=== PATIENT | female | born 1965 | race Caucasian/White ===

== ENCOUNTER 2025-01-08 19:29 | Emergency (ER) | payer BC, SELFPAY ==
--- OUTSIDE RECORDS SUMMARY | 2025-01-08 19:39 | XMS_ITS ---
Author Organization [facility] Address [address] [address] Care Team Providers Care Reinforced Ironworker Name Role Phone Angela Momin Primary Care Provider [phone] Migration, Provider Unavailable Unavailable REASON FOR VISIT [facility] To [facility] Conversion Encounter Medications Medication SIG (Take, Route, Frequency, Duration) Notes Start Date End Date Status Metoprolol Succinate ER 25 MG 1 tab(s) orally once a day A ctive Ozempic (0.25 or 0.5 MG/DOSE) 2 MG/3ML inject 0.25 mg once weekly x 4 weeks then increase to 0.5 mg once weekly thereafter subcutaneously once a week for 90 days 07/21/2024 Active Tresiba FlexTouch 100 UNIT/ML inject up to 40 units subcutaneously once a day at bedtime for 90 days 07/21/2024 Active Basaglar KwikPen 100 UNIT/ML inject 14 units in morning and 16 units at bedtime and titrate to ideal glucose range; TDD up to 60 units subcutaneously twice daily for 90 days 08/05/2024 Active Glimepiride 1 MG 1 tab(s) orally once a day Active PARoxetine HCl 20 MG 1 tab(s) orally once a day Active Omeprazole 40 MG 1 cap(s) orally once a day Active metFORMIN HCl 500 MG 1 tab(s) orally 2 t imes a day Active Encounters Encounter Location Date Provider Diagnosis [facility] [address] [place] [address] 10/15/2024 Provider Migration Type 2 diabetes mellitus with hyperglycemia E11.65 Assessments Encounter Date Diagnosis (ICD Code) Assessment Notes Treatment Notes Treatment Clinical Notes Section Notes 10/15/2024 Type 2 diabetes mellitus with hyperglycemia (ICD-10 - E11.65) Plan Of Treatment Medication Medication Name Sig Start Date Stop Date Notes Ozempic (0.25 or 0.5 MG/DOSE) 2 MG/3ML inject 0.25 mg once weekly x 4 weeks then increase to 0.5 mg once weekly thereafter subcutaneously once a week for 90 days 07/21/2024 Tresiba FlexTouch 100 UNIT/ML inject up to 40 units subcutaneously once a day at bedtime for 90 days 07/21/2024 Basaglar KwikPen 100 UNIT/ML inject 14 units in morning and 16 units at bedtime and titrate to ideal glucose range; TDD up to 60 units subcutaneously twice daily for 90 days 08/05/2024 Progress Notes * JEFFREY, CATERINAIDOB:1965 ([age] yo F)Acc No.[id number]:10/15/2024 Patient: KERI SINGH Provider: Barrett Lopez :1965 A ge:59 Y S ex:Female Date:10/15/2024 Phone: Address:[address] [place], [place] [id number] Pcp:Angela Momin Subjective: * Chief Complaints: * [facility] . [facility] Conversion Encounter. * Medical History: * Medications: T aking Glimepiride 1 MG Tablet 1 tab(s) orally once a day , Taking Omeprazole 40 MG Capsule Delayed Release 1 cap(s) orally once a day , Taking PARoxetine HCl 20 MG Tablet 1 tab(s) orally once a day , Taking metFORMIN HCl 500 MG Tablet 1 tab(s) orally 2 times a day , Taking Metoprolol Succinate ER 25 MG Tablet Extended Release 24 Hour 1 tab(s) orally once a day Objective: * Vitals: Assessment: * Assessment: 1. T ype 2 diabetes mellitus with hyperglycemia - E11.65 (Primary) Plan: * Treatment: * Billing Information: * Visit Code: * Procedure Codes: * Electronic signature of Prov ider Migration on 01/08/2025 at 07:38 PM SALES AND MARKETING SPECIALIST Sign off status: Pending * Provider: Barrett Lopez Date: 12/15/2023 Generated for Sultana weaver/Giuseppe/eTransmitting on: 0 01/08/2025 07:38 PM SALES AND MARKETING SPECIALIST
--- OUTSIDE RECORDS SUMMARY | 2025-01-08 19:39 | XMS_ITS | Encounter Summary ---
Author Organization [facility] Address [address] [place] [address] Care Team Providers Care Hospital Nurse Name Role Phone Wellington Medina MD Primary Care Provider [phone] Shena Acosta MA Unavailable [phone] Maryann Foy MA Unavailable [phone] Encounter Details Date Type Department Care Team (Late st Contact Info) Description 03/15/2021 Telephone [facility] Mammography [address] [place] [address] Amanda Gomez RT Social History Tobacco Use Types Packs/Day Years Used Date Smoking Tobacco: Every Day Cigarettes Smokeless Tobacco: Never Comments:5-6 cigs day Alcohol Use Standard Drinks/Week Comments Yes 0 (1 standard drink = 0.6 oz pure alcohol) occationally wine none recently PHQ-2 Answer Date Recorded PHQ-2 Total Score (If total score is 3 or more points, staff should administer the PHQ-9) 0 03/11/2021 Comments No Sex and Gender Information Value Date Recorded Sex Assigned at Not on file Legal 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 Gender Identity Not on file Sexual Orientation Not on file 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 Not on file Not on file Not on file documented as of this encounter Plan of Treatment Scheduled Procedures Name Priority Associated Diagnoses Date/Ti me ESOPHAGOGASTRODUODENOSCOPY Open Access 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 COLONOSCOPY Open Access Personal history of colonic polyps COLONOSCOPY Screening for colon cancer documented as of this encounter Visit Diagnoses Not on filedocumented in this encounter Care Teams Hospital Nurse Relationship Specialty Start Date End Date Wellington Medina MD [address] [place] [address] [address] [place] [address] PCP - General 02/27/17 Shena Acosta MA [address] [place] [address] [employer] Branding Machine Tender 08/28/22 08/28/22 Maryann Foy MA [address] [place] [address] ACO Care Branding Machine Tender 02/23/23 02/23/23 documented as of this encounter
--- OUTSIDE RECORDS SUMMARY | 2025-01-08 19:39 | XMS_ITS | Patient Health Record ---
Author Organization [facility] Address [address] [address] Care Team Providers Care Wrecking Car Driver Name Role Phone Angela Momin Primary Care Provider [phone] BR[facility]ON[facility] Unavailable [phone] Migration, Provider Unavailable Unavailable Reason For Referral No Information Medications Medication SIG (Take, Route, Frequency, Duration) Notes Start Date End Date Status PARoxetine HCl 20 MG 1 tab(s) orally once a day Active Omeprazole 40 MG 1 cap(s) orally once a day Active Metoprolol Succinate ER 25 MG 1 tab(s) orally once a day A ctive metFORMIN HCl 500 MG 1 tab(s) orally 2 t imes a day Active Ozempic (0.25 or 0.5 MG/DOSE) 2 MG/3ML [...] 1 tab(s) orally once a day Active Social History Tobacco Use: Social History Observation Description Date Smoking Status WARNING: Information temporarily unavailable Smoking: Question Answer Notes Additional Findings: Tobacco User 1 to 2 a day Problems Problem Type SNOMED Code ICD Code Onset Dates Problem Status W/U Status Risk Notes Problem Vitamin D deficiency (92081893) Vitamin D deficiency, unspecified (E55.9) Active confirmed Problem Hyperglycemia due to type 2 diabetes mellitus (845841362122622) Type 2 diabetes mellitus with hyperglycemia (E11.65) Active confirmed Problem Hyperlipidemia (51964941) Hyperlipidemia, unspecified (E78.5) Active confirmed Vital Signs Heart Rate 94 /min 07/21/2024 Blood pressure diastolic 80 mm Hg 07/21/2024 Height 66 in 07/21/2024 Blood pressure systolic 137 mm Hg 07/21/2024 Weight 187.0 lbs 07/21/2024 BMI 30.18 kg/m2 07/21/2024 Encounters Encounter Location Date Provider Diagnosis [address] [place] [address] 10/15/2024 Provider Migration Type 2 diabetes mellitus with hyperglycemia E11.65 [facility], [facility] - [facility] [address] [place] [address] 07/21/2024 Angela Momin Type 2 diabetes mellitus with hyperglycemia E11.65 ; Hyperlipidemia, unspecified E78.5 ; Other fatigue R53.83 and Vitamin D deficiency, unspecified E55.9 [facility] [address] [place] [address] 07/21/2024 [facility] [address] [place] [address] 07/27/2024 [facility] - [facility] [address] [place] [address] 07/28/2024 [facility] - [facility] [address] [place] [address] 08/02/2024 Angela Momin [facility] [address] [place] [address] 08/03/2024 Angela Momin [facility] - [facility] [address] [place] [address] 08/05/2024 Angela Momin Type 2 diabetes mellitus with hyperglycemia E11.65 Assessments Encounter Date Diagnosis (ICD Code) Assessment Notes Treatment Notes Treatment Clinical Notes Section Notes 10/15/2024 Type 2 diabetes mellitus with hyperglycemia (ICD-10 - E11.65) 07/21/2024 Type 2 diabetes mellitus with hyperglycemia (ICD-10 - E11.65) a1c due- sugars over 200 mg/dL consistently - Discussed carb counting and how to read food labels. Recommended patient to utilize the diabetesfoodhub.Couchy.com from the ADA website to help with food preparation as this presents ideal carb content per meal and will make carb counting easier for patient. Recommended she incorporate natural insulin sensitizers such as pears, apples, cinnamon, javi and sweet potatoes to help mobilize her endogenous insulin. Recommended up to 150 minutes of moderate level activity /exercise per week. Will transition to tresiba due to long acting duration of effect and decreased frequency of early childhood special educator hypoglycemia. Start at 20 units once daily at bedtime and patient advised to titrate up by 2 units every 4 days until fasting glucose running 90-120 mg/dL consistently (2-3 days consecutively). She may be able to avoid rapid/bolus insulin depending on residual insulin function and if eating more nonstarchy carbohydrates such as vegetables and low glycemic index fruits. Recommended GLP1 agonist therapy as she is having trouble at times with cravings of sweets and portion control. She does exercise at least three days a week 45 minutes at a time. Discussed potentially reducing total carb intake to 120 grams daily into 4-5 small split meals with addition of healthy protein based snack at bedtime to help reduce early childhood special educator hyperglcemia from counterregulatory hormones. She has no history of pancreatitis or medullary thyroid cancer and is willing to trial on a GLP1 agonist therapy. She was advised to contact clinic if he/she experiences any nausea, vomiting or significant thyroid pain/swelling or abdominal pain so we can discuss and discontinue and potentiually look into other therapy. Trial on ozempic 0.25 mg once weekly x 4 weeks then increase to 0.5 mg weekly when needed. Freestyle terry plus sensor provided today and patient educated on self placement. She is on insulin and will require the use of CGM to prevent hypoglycemia and potential hospitalizations. freestyle terry 3 plus Lot [id number] 12/30/2024 07/21/2024 Hyperlipidemia, unspecified (ICD-10 - E78.5) Send for lipid panel to screen. 08/05/2024 Type 2 diabetes mellitus with hyperglycemia (ICD-10 - E11.65) 07/21/2024 Other fatigue (ICD-10 - R53.83) WIll send for thyroid antibodies to screen for autoimmune thyroid disease in adition to CBC, CMP, ferritin, vit D and B12/folate to screen for other potential secondary causes of fatigue. 07/21/2024 Vitamin D deficiency, unspecified (ICD-10 - E55.9) Send for vitamin D to assess need to modify therapy. 07/21/2024 Other Spent 45 minute s preparing to see the patient (ex review of tests/chart), obtaining and / or reviewing separately obtained history, performing a medically appropriate examination and/or evaluation, counseling and educating the patient/family/careg iver, ordering medications, tests, or procedures, referring and communicating with other health lead caregiver, documenting clinical information in the electronic or other health record, independently interpreting results and communicating results to the patient/family/careg iver and care coordinating patient plan. Patient alert and oriented x 4 and aware of discussion noted above and in agreeance to plan in management of DM, dyslipidemia, vitamin D def and fatigue. Plan Of Treatment No Information Insurance Providers Payer Name Payer Address Payer Phone Subscriber Number Group Number Insured Name Patient Relationship to Insured Coverage Start Date Coverage End Date [facility] [address] [place] [address] [id number] KERI MURPHY Self - patient is the insured Medical (General) History Surgical History Surgery Date(Month/Year) Hiatal Hernia spinal surgery 01/2023
--- OUTSIDE RECORDS SUMMARY | 2025-01-08 19:39 | XMS_ITS | Referral Summary ---
Author Organization [facility] HealthCare Care Team Providers Care Fire Range Technician Name Role Phone Wellington Medina MD Primary Care Provider [phone] Encounters Date Type Department Care Team Description 12/02/2024 Orders Only [facility] at the [address] [phone] Wellington Medina MD 12/02/2024 Telephone [facility] at the [address] [phone] Wellington Medina MD Medical Question/Miscellaneous 11/11/2024 Orders Only [facility] at the [address] [phone] Wellington Medina MD 11/11/2024 Telephone [facility] at the [address] [phone] [place] Medina MD Symptom Based Call from Last 3 Months Allergies No known active allergies Medications ergocalciferol (VITAMIN D) 50,000 unit capsule Take 1 capsule (50,000 Units total) by mouth once a week 4 capsule 5 5 Active metFORMIN (GLUCOPHAGE) 500 mg tabletIndicatio ns:type 2 diabetes mellitus Take 1 tablet (500 mg total) by mouth 2 (two) times a day with meals 180 tablet [address] (PROTONIX) 40 mg EC tablet Take 1 tablet (40 mg total) by mouth daily Take 30 min before breakfast 90 tablet 3 5 12/02/19 26 Active PARoxetine (PAXIL) 20 mg tablet Take 1.5 tablets (30 mg total) by mouth daily 135 tablet 1 5 Active rosuvastatin (CRESTOR) 10 mg tablet Take 1 tablet (10 mg total) by mouth daily 90 tablet 3 5 Active insulin degludec (TRESIBA) 100 unit/mL (3 mL) pen for injection Inject 0.2 mL (20 Units total) under the skin nightly 6 mL 5 5 Active blood-glucose sensor device Apply 1 sensory every 15 days 2 each 5 5 Active lisinopriL (PRINIVIL,ZESTR IL) 20 mg tablet Take 1 tablet by mouth once daily 90 tablet 5 Active Active Problems Problem Noted Date Diagnosed Date Personal history of colonic polyps 07/27/2024 Assessment & Plan (07/28/2024 10:06 PM CDT): Ordered screening colonoscopy. S/P lumbar fusion 02/17/2023 Synovial cyst 09/26/2022 Overview (09/26/2022): Added automatically from request for surgery [id number] Spinal stenosis of lumbar region with radiculopa thy 09/26/2022 Overview (09/26/2022): Added automatically from request for surgery [id number] Assessment & Plan (01/15/2023 5:24 PM DEEP [employer] FRY): Lumbar spine surgery scheduled. Assessment & Plan (10/05/2022 7:59 PM DEEP [employer] COOK FRY): Spinal surgery onhold until patient's glycemic control improves. Primary insomnia 03/11/2021 Escobedo's esophagus 08/14/2020 Overview (08/14/2020): Added automatically from request for surgery [id number] Assessment & Plan (07/28/2024 10:06 PM CDT): Continue with pantoprazole. Due for re-evaluation with an EGD. Type 2 diabetes mellitus wit h hyperglycemia, without long-term current use of insulin 05/09/2019 Assessment & Plan (07/28/2024 10:05 PM CDT): Uncontrolled type 2 diabetes due to unintentional medication nonadherence due to loss of health insurance. Endocrinology resumed insulin treatment. Continue current diet and metformin as well. Target HGB A1c less 7%. Assessment & Plan (07/20/2023 8:01 PM CDT): Continue current diet and metformin. Target Hb A1c less than 7%. Once insurance reestablishing, I asked patient to call and we will check BMP, CBC and HbA1c. Assessment & Plan (02/25/2023 8:33 PM CDT): Well controlled type 2 DM. Continue current diet, semaglutide and metformin. Target Hb A1c less than 7.5%. Assessment & Plan (01/15/2023 5:23 PM DEEP [employer] COOK FRY): Much improved glycemic control with last Hb A1c of 7.1%. Continue current diet, Ozempic and metformin. Patient encouraged to update eye exam Assessment & Plan (10/05/2022 7:59 PM DEEP [employer] COOK FRY): Poorly controlled type 2 DM. Target Hb A1c less than 8.0%. Encouraged patient to send updates on blood sugar log. Continue current diet medications. Assessment & Plan (08/29/2022 12:00 PM CDT): Poorly controlled type 2 DM. Target Hb A1c 8.5%. Patient reports improving glycemic control with current diet and insulin treatment. Check CMP and HbA1c. Assessment & Plan (05/15/2022 12:54 PM CDT): Uncontrolled type 2 DM. Target Hb A1c less than 7.5%. Continue current diet insulin treatment. Check CMP, spot urine & HbA1c. Patient encouraged update eye exam. Benign essential hypertension 01/16/2016 Overview (03/05/2017): Benign essential hypertension Assessment & Plan (07/28/2024 10:05 PM CDT): Target BP less than 130/80. Continue current diet and lisinopril Assessment & Plan (02/25/2023 8:33 PM CDT): Target BP less than 130/80. Continue current diet, metoprolol and lisinopril. Assessment & Plan (10/05/2022 7:58 PM DEEP [employer] COOK FRY): Target BP <140/90. Continue current diet and medication Assessment & Plan (08/29/2022 12:00 PM CDT): Target BP less than 140/90. Continue current diet and medications. Assessment & Plan (05/15/2022 12:54 PM CDT): Target BP <140/90. Continue current diet, lisinopril and metoprolol. Check CBC and CMP. Recurrent major depressive disorder 01/16/2016 Overview (03/06/2017): Chronic major depressive disorder, recurrent episode Assessment & Plan (07/28/2024 10:05 PM CDT): Continue with Paxil. Assessment & Plan (02/25/2023 8:34 PM CDT): Mood stable on paroxetine. Assessment & Plan (01/15/2023 5:23 PM DEEP [employer] COOK FRY): Mood stable on paroxetine. Assessment & Plan (08/29/2022 12:01 PM CDT): Mood stable on paroxetine. Migraine with aura 06/13/2014 Overview (03/06/2017[facility] Panic disorder 04/15/2014 Overview (03/04/2017): PANIC DISORDER Polycystic ovaries 04/15/2014 Overview (03/05/2017): POLYCYSTIC OVARIES Hyperlipidemia associated with type 2 diabetes m gabriela 04/15/2014 Overview (03/05/2017): PURE HYPERCHOLESTEROLEM Assessment & Plan (07/28/2024 10:04 PM CDT): Uncontrolled hyperlipidemia due to unintentional medication non adherence due to loss of health insurance. Start rosuvastatin 10 mg daily. Target LDL less than 100. Assessment & Plan (02/25/2023 8:33 PM CDT): Target LDL less than 100. Continue current diet and rosuvastatin. Assessment & Plan (01/15/2023 5:23 PM DEEP [employer] COOK FRY): Target LDL less than 100. Continue current diet and rosuvastatin. Assessment & Plan (10/05/2022 7:57 PM DEEP [employer] COOK FRY): Target LDL less than 100. Continue current diet and rosuvastatin. Assessment & Plan (08/29/2022 12:00 PM CDT): Uncontrolled hyperlipidemia. Target LDL less than 100. Continue current diet and rosuvastatin. Check CMP and FLP. Assessment & Plan (05/15/2022 12:53 PM CDT): Uncontrolled hyperlipidemia. Recheck CMP and FLP. Target LDL less than 100. Continue current diet and rosuvastatin. Iron deficiency anemia 04/15/2014 Overview (03/05/2017): IRON DEFIC ANEMIA NOS Gastroesophageal reflux disease 04/15/2014 Overview (03/05/2017): ESOPHAGEAL REFLUX Assessment & Plan (05/15/2022 12:54 PM CDT): Continue with pantoprazole 40 mg daily. Generalized anxiety disorder 04/15/2014 Overview (03/05/2017): GENERALIZED ANXIETY DIS Resolved Problems Problem Noted Date Diagnosed Date Resolved Date Hyperlipidemia 01/16/2016 12/09/2017 Overview (03/06/2017): Hyperlipidemia LDL goal <130 Adiposity 04/15/2014 12/09/2017 Overview (03/04/2017): OBESITY NOS Depression 04/15/2014 01/05/2019 Overview (03/05/2017): DEPRESSIVE DISORDER NEC Benign hypertension 04/15/2014 01/05/20 Overview (03/05/2017): BENIGN HYPERTENSION Chest pain 04/15/2014 01/05/2019 Overview (03/06/2017): CHEST PAIN NOS Immunizations Name Administration Dates Next Due Influenza, Quadrivalent, Spl it, Preservative Free, Intramuscular 08/29/2022,08/30/2021,09/13/2020,11/17 Influenza, Split 10/13/2011 Influenza, Trivalent, IM (MDV) 09/28/2009,2007 Influenza, Unspecified 11/11/2023(Deferr ed: Patient Refused),09/30/2018 Pfizer SARS-CoV-2 Monovalent Vaccination (12+ Yrs) PURPLE 10/16/2021,01/28/2021,01/07/2021 Td, adsorbed 01/24/2000 Tdap 01/24/2011 ZOSTER Recombinant 07/27/2024,10/28/2021 Social History Tobacco Use Types Packs/Day Years Used Date Smoking Tobacco: Former Cigarettes 0.3 12 1 11/2009 - 09/2022 Smokeless Tobacco: Never Tobacco Cessation:Counseling Given: Not Answered Comments:5-6 cigs day Alcohol Use Standard Drinks/Week Comments Yes 0 (1 standard drink = 0.6 oz pure alcohol) occationally wine none recently AUDIT-C Answer Date Recorded Q1: How often do you have a drink containing alcohol? Never 02/17/2023 Q2: How many drinks containi ng alcohol do you have on a typical day when you are drinking? Patient does not drink Q3: How often do you have si x or more drinks on one occasion? Never 02/17/2023 PHQ-2 Answer Date Recorded PHQ-2 Total Score (If total score is 3 or more points, staff should administer the PHQ-9) 6 01/21/2024 Personal Safety Answer Date Recorded Have you ever been in or are you currently in a harmful physical or emotional relationship or is someone making you feel afraid or unsafe? 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) Not on file Not on file Not on adele e Last Filed Vital Signs Vital Sign Reading Time Taken Comments Blood Pressure 118/82 07/27/2024 9:24 AM CDT Pulse 91 07/27/2024 9:24 AM CDT Temperature 37 C (98.6 F) 02/20/2023 7:35 AM CDT Respiratory Rate 17 02/20/2023 7:35 AM CDT Oxygen Saturation 97% 07/27/2024 9:24 AM CDT Inhaled Oxygen Concentration - - Weight 86.2 kg (190 lb) 07/27/2024 9:24 AM CDT Height 166.4 cm (5' 5.5 ) 07/27/2024 9:24 AM CDT Body Mass Index 31.14 07/27/2024 9:24 AM CDT Plan of Treatment Scheduled Procedures Name Priority Associated Diagnoses Date/Ti me ESOPHAGOGASTRODUODENOSCOPY Open Access 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 COLONOSCOPY Open Access Personal history of colonic polyps COLONOSCOPY Screening for colon cancer Medical Devices Implanted Type Area Vp Product Device Identifier Shelf Expiration Date Model / Serial / Lot Allosource Canpac Allograft Frozen Nonpurge Graft 10cc Bone Cancellous [id number] - [id number] Implanted:Qty: 1 on 02/17/2023 by Gustabo Lynne MD at [facility] N/A: Spine Lumbar Allosource 10/19/2027 [id number] / / [id number] [employer] Reline 5.5mm Lock Open Tulip Spine Screw Bone Nonsterile [id number] - [id number] Implanted:Qty: 4 on 02/17/2023 by Gustabo Lynne MD at [facility] N/A: Spine Lumbar [employer] [id number] / / [employer] Reline-O 7.5mm 45mm Polyaxial Spine 2s Screw Bone Nonsterile [id number] - [id number] Implanted:Qty: 1 on 02/17/2023 by Gustabo Lynne MD at [facility] N/A: Spine Lumbar [employer] [id number] / / [employer]. Reline-O 5.5mm 35mm Lordotic Bruno Spinal Titanium Nonsterile [id number] - [id number] Implanted:Qty: 1 on 02/17/2023 by Gustabo Lynne MD at [facility] N/A: Spine Lumbar [employer]. [id number] / / [employer]. Reline-O 5.5mm 40mm Lordotic Bruno Spinal Titanium Nonsterile [id number] - [id number] Implanted:Qty: 1 on 02/17/2023 by Gustabo Lynne MD at [facility] N/A: Spine Lumbar [employer]. [id number] / / [employer] Reline-O 8.5mm 50mm Polyaxial Spine 2s Screw Bone Nonsterile [id number] - [id number] Implanted:Qty: 1 on 02/17/2023 by Gustabo Lynne MD at [facility] N/A: Spine Lumbar [employer] [id number] / / [employer] Screw Bone Spinal Reline-O 7.0x50mm 2s Polyaxial [id number] - [id number] Implanted:Qty: 2 on 02/17/2023 by Gustabo Lynne MD at [facility] N/A: Spine Lumbar [employer] [id number] / / Procedures Procedure Name Priority Date/Time Associated Diagnosis Comments ALBUMIN CREATININE RATIO, URINE Routine 07/13/2024 2:04 PM CDT Type 2 diabetes mellitus with hyperglycemia, without long-term current use of insulin ([facility]) ([facility]) EGFR Routine 07/13/2024 12:14 PM CDT Type 2 diabetes mellitus with hyperglycemia, without long-term current use of insulin (CMS/[facility]) ([facility]) Benign essential hypertension Hyperlipidemia associated with type 2 diabetes mellitus ([facility]) HEMOGLOBIN A1C Routine 07/13/2024 12:14 PM CDT Type 2 diabetes mellitus with hyperglycemia, without long-term current use of insulin (CMS/[facility]) ([facility]) LIPID PANEL Routine 07/13/2024 12:14 PM CDT Type 2 diabetes mellitus with hyperglycemia, without long-term current use of insulin (CMS/HCC) (HCC) Hyperlipidemia associated with type 2 diabetes mellitus (HCC) SCREENING MAMMOGRAM BILATERAL W NARENDRA Schedule Routine, Read Routine (OP Routine) 03/19/2021 11:37 AM CDT Screening mammogram, encounter for COLONOSCOPY 08/31/2020 8:21 AM CDT from Last 3 Months or Most Recently Relevant to Health Maintenance Results * Albumin Creatinine Ratio, Urine (07/13/2024 2:04 PM CDT) Albumin Ur <12.0 mg/L Comment: Interpretive Data No reference range established. Current interpretive data was last revised 2019. Creatinine Ur 79.6 mg/dL [facility] Comment: Interpretive Data No reference range established. Current interpretive data was last revised 2019. Albumin Creatinine Ratio, Ur <15 1 - 29 mg/g [facility] Urine 07/13/2024 2:04 PM CDT 07/13/2024 3:41 PM CDT us Wellington Medina MD LAB URINE ORDERABLES Final Re sult [facility] Department [place] [address] * eGFR (07/13/2024 12:14 PM CDT) eGFR 87 >=60 mL/min/1. 73 m2 Comment: Interpretive Data Reference Interval Normal >/= 90 mL/min/1.73m2 Mildly decreased* 60 - 89 mL/min/1.73m2 Mildly to moderately decreased 45 - 59 mL/min/1.73m2 Moderately to severely decreased 30 - 44 mL/min/1.73m2 Severely decreased 15 - 29 mL/min/1.73m2 Kidney Failure < 15 mL/min/1.73m2 *Relative to young adult level Estimated glomerular filtration rate is determined by the 2020 CKD-EPI equation recommended by the National Kidney Foundation (A Unifying Approach to GFR Estimation: Recommendations of the NKF-ASK Task Force on Reassessing the Inclusion of Race in Diagnosing Kidney Disease, JASN 2020). The CKD-EPI equation should not be used for patients with unstable renal function and has not been validated in children and those over 70. Current interpretive data was last reviewed 2021. Blood 07/13/2024 12:1 4 PM CDT 07/13/2024 2:04 PM CDT Wellington Medina MD LAB BLOOD ORDERABLES Final Re sult Performing Organization Address [facility] de Phone Number [facility] [place] [address] * (ABNORMAL) Hemoglobin A1c (07/13/2024 12:14 PM CDT) Hgb A1C 12.5(H) 4.0 - 5.6 % Estimated Average Glucose 312 mg/dL [facility] Comment: The ADA recommends reporting an estimated Average Glucose (eAG) with all Hemoglobin A1c results using the equation derived from a study of 507 normal and diabetic adults. Minority populations were underrepresented and children were not included. (Diabetes Care 2020; 43(S1): S66-S76). The eAG is not equivalent to a fasting glucose. Blood 07/13/2024 12:1 4 PM CDT 07/13/2024 1:58 PM CDT Wellington Medina MD LAB BLOOD ORDERABLES Final Re sult Performing Organization Address [facility] Co de Phone Number [facility] [place] [address] * (ABNORMAL) Lipid panel (07/13/2024 12:14 PM CDT) Cholesterol 302(H) 30 - 199 mg/dL Comment: Interpretive Data Ages < or = 19 years Acceptable: <170 mg/dL Borderline high: 170-199 mg/dL High: >or= 200 mg/dL Ages > or = 20 years Desirable: <200 mg/dL Borderline high: 200-239 mg/dL High: >or= 240 mg/dL Literature References: 1. Expert Panel on Integrated Guidelines for Cardiovascular Health and Risk Reduction in Children and Adolescents. Pediatrics 2011;128:S213 2. NCEP Expert Panel. Circulation 2004;110:227 Current Interpretive Data was last revised on 2018. Triglycerides 273(H) <=149 mg/dL [facility] Comment: Interpretive Data Ages < or = 9 years Acceptable: <75 mg/dL Borderline high: 75-99 mg/dL High: >or= 100 mg/dL Ages 10 to 20 years Acceptable: <90 mg/dL Borderline high: 90-129 mg/dL High: >or= 130 mg/dL Ages > or = 20 years Desirable: <150 mg/dL Borderline high: 150-199 mg/dL High: 200-499 mg/dL Very high: >or= 499 mg/dL Literature References: 1. Expert Panel on Integrated Guidelines for Cardiovascular Health and Risk Reduction in Children and Adolescents. Pediatrics 2011;128:S213 2. NCEP Expert Panel. Circulation 2004;110:227 Current Interpretive Data was last revised on 2018. HDL 43 >=40 mg/dL [facility] Comment: Interpretive Data Ages < or = 19 years Acceptable: >45 mg/dL Borderline low: 40-45 mg/dL Low: <40 mg/dL Ages > or = 20 years Desirable: >or= 60 mg/dL Low: <40 mg/dL Literature References: 1. Expert Panel on Integrated Guidelines for Cardiovascular Health and Risk Reduction in Children and Adolescents. Pediatrics 2011;128:S213 2. NCEP Expert Panel. Circulation 2004;110:227 Current Interpretive Data was last revised on 2018. LDL, calculated 204(H) <=129 mg/dL [facility] Comment: Interpretive Data Ages < or = 19 years Acceptable: <110 mg/dL Borderline high: 110-129 mg/dL High: >or= 130 mg/dL Ages > or = 20 years Optimal: <100 mg/dL Near optimal: 100-129 mg/dL Borderline high: 130-159 mg/dL High: >160 mg/dL Literature References: 1. Expert Panel on Integrated Guidelines for Cardiovascular Health and Risk Reduction in Children and Adolescents. Pediatrics 2011;128:S213 2. NCEP Expert Panel. Circulation 2004;110:227 Current Interpretive Data was last revised on 2018. Non-HDL Cholesterol 259 mg/dL [facility] Comment: Interpretive Data Ages < or = 19 years Acceptable: <120 mg/dL Borderline high: 120-144 mg/dL High: >145 mg/dL Ages > or = 20 years When triglycerides are >200 mg/dL, Non-HDL cholesterol is a secondary target of therapy with treatment goals that are 30 mg/dL greater than the LDL cholesterol target. Literature References: 1. Expert Panel on Integrated Guidelines for Cardiovascular Health and Risk Reduction in Children and Adolescents. Pediatrics 2011;128:S213 2. NCEP Expert Panel. Circulation 2004;110:227 Current Interpretive Data was last revised on 2018. Chol/HDL ratio 7 [facility] Blood 07/13/2024 12:1 4 PM CDT 07/13/2024 1:58 PM CDT us Wellington Medina MD LAB BLOOD ORDERABLES Final Re sult [facility] [place] [address] * Screening Mammogram Bilateral W Narendra (03/19/2021 11:37 AM CDT) Anatomical Region Laterality Modality Breast Bilateral Mammography Narrative 03/19/2021 2:25 PM CDT Mammogram Technique: Bilateral Digital Breast Tomosynthesis, Bilateral C-view 2D Screening mammogram. Views obtained: bilateral craniocaudal and bilateral mediolateral oblique. Computer Aided Detection was performed. Mammogram Findings: No prior imaging studies are available for comparison. The breasts are heterogeneously dense, which may obscure small masses. There are amorphous calcifications in the posterior of the right breast at 12 o'clock. There is no suspicious abnormality in the left breast. Impression: Calcifications in the right breast require additional evaluation. Additional views are recommended. OVERALL FINAL ASSESSMENT: BI-RADS CATEGORY 0: Incomplete: Need additional imaging evaluation. Procedure Note Ca Worley MD - 03/19/2021 Mammogram Technique: Bilateral Digital Breast Tomosynthesis, Bilateral C-view 2D Screening mammogram. Views obtained: bilateral craniocaudal and bilateral mediolateral oblique. Computer Aided Detection was performed. Mammogram Findings: No prior imaging studies are available for comparison. The breasts are heterogeneously dense, which may obscure small masses. There are amorphous calcifications in the posterior of the right breastat 12 o'clock. There is no suspicious abnormality in the left breast. Impression: Calcifications in the right breast require additional evaluation. Additional views are recommended. OVERALL FINAL ASSESSMENT: BI-RADS CATEGORY 0: Incomplete: Need additional imaging evaluation. us Wellington Medina MD IMG MAMMO PROCEDURES Final Re sult * COLONOSCOPY (08/31/2020 8:21 AM CDT) Anatomical Region Laterality Modality Other Narrative Procedure Note Maryann Patterson MD - 08/31/2020 8:21 AM CDT GI ENDOSCOPY [facility] Patient Name: Tessa Ohara Procedure Date: 08/31/2020 8:21 AM Date of : 1965 Admit Type: Outpatient Age: 55 Gender: Female Attending MD: Maryann Patterson M.D. Room: [facility] Note Status: Finalized Procedure: Colonoscopy Indications: Screening for colorectal malignant neoplasm, Last colonoscopy within the past few months (poor prep) Referring MD: Wellington Medina M.D. Providers: Maryann Patterson M.D. Medicines: Monitored Anesthesia Care Complications: No immediate complications. Estimated Blood Loss: Estimated blood loss: none. Procedure: Pre-Anesthesia Assessment: - The risks and benefits of the procedure and the sedation options and risks were discussed with the patient. All questions were answered and informed consent was obtained. - Immediately prior to administration ofmedications, the patient was re-assessed for adequacy to receive sedatives. The benefits, risks and alternatives of theprocedure and sedation were discussed and informed consent was obtained. All questions were answered. Please referto the signed informed consent document in the medical record. The scope was passed under direct vision.The [id number] endoscope was introduced throughthe anus and advanced to the cecum, identified by appendiceal orifice and ileocecal valve. The colonoscopy was performed without difficulty. The patient tolerated the procedure well. The quality of the bowel preparation was evaluated using the BBPS ([place] Bowel Preparation Scale) with scores of:Right Colon = 2 (minor amount of residual staining, small fragments of stool and/or opaque liquid, but mucosa seen well), Transverse Colon = 3 (entire mucosa seen well with no residual staining, small fragments of stool or opaque liquid) and Left Colon = 2 (minor amount of residual staining, small fragments ofstool and/or opaque liquid, but mucosa seen well). Thetotal BBPS score equals 7. The quality of the bowel preparation was good. The bowel preparation used was GoLYTELY. The quality of the bowel preparation wasgood. Findings: A 6 mm polyp was found in the cecum. The polyp was sessile. The polyp was removed with a cold snare. Resection and retrieval werecomplete. A 3 mm polyp was found in the ascending colon. The polyp was sessile. The polyp was removed with a cold snare. Resection and retrieval were complete. A few diverticula were found in the ascending colon. An ill defined area of slightly nodular appearing mucosa was found in the transverse colon. This did not appear overtly polypoid. Biopsies were obtained with cold forceps. Three sessile polyps were found in the transverse colon. The polypswere 2 to 4 mm in size. These polyps were removed with a cold snare. Resection and retrieval were complete. A 3 mm polyp was found in the sigmoid colon. The polyp was sessile.The polyp was removed with a cold biopsy forceps. Resection and retrieval were complete. Impression: - 6 mm cecal polyp, removed with cold snare - 3 mm ascending colon polyp, removed with coldsnare - Ill defined area of nodular mucosa transversecolon. Biopsied. - Three transverse colon polyps, removed with coldsnare - 3 mm sigmoid colon polyp, removed with coldforceps - Diverticulosis Recommendation: - You should get a call with you biopsy resultswithin 5-7 days. If you do not hear from us regarding your biopsy results within 5-7 days, please call [phone]). - Repeat colonoscopy in 3 years with 2 day prep - - In the unusual situation that you developabdominal pain, bleeding or other significant problems in the days following this procedure please [id number] [id number]). After hours and evenings please call [phone] and speak to the GI fellow inventory control specialist.Please tell them that Dr. Patterson did your procedure andthat your were instructed to have the fellow call me orthe physician covering for me to discuss the managementof your condition. If you have an urgent problem,please go to the nearest emergency room and have the ERdoctor call my office during the day or the GI Fellow after hours and weekends to arrange admission or transferto our facility. Attending Participation: I was present and participated during the entire procedure, including non-matt portions. Electronically signed by Maryann Patterson MD Maryann Patterson M.D. 08/31/2020 9:24:52 AM . Number of Addenda: 0 Note Initiated On: 08/31/2020 8:21 AM Recognized by the [place] [employer] for promoting quality in endoscopy Maryann Patterson MD ENDOSCOPY PROCEDURE S Final Result from Last 3 Months or Most Recently Relevant to Health Maintenance Insurance [facility] Address: [id number] [place] [address] Advance Directives For more information, please contact: [phone] * Full Code (Latest Code Status on File) Date Activated Date Inactivated Comments 02/17/2023 9:58 PM 02/20/2023 6:11 PM * Full Code Date Activated Date Inactivated Comments 08/31/2020 7:55 AM 08/31/2020 2:18 PM * Full Code Date Activated Date Inactivated Comments 07/06/2020 10:58 AM 07/06/2020 6:03 PM Care Teams Fire Range Technician Relationship Specialty Start Date End Date Wellington Medina MD [address] [place] [address] DR Sravanthi SANDERS [address] [place] [address] PCP - General 02/27/17
--- OUTSIDE RECORDS SUMMARY | 2025-01-08 19:39 | XMS_ITS | Encounter Summary ---
Author Organization [facility] Healthcare Address [address] [place] [address] Care Team Providers Care Manager Health Name Role Phone Wellington Medina MD Primary Care Provider [phone] Shena Acosta MA Unavailable [phone] Maryann Foy MA Unavailable [phone] Encounter Details Date Type Department Care Team (Late st Contact Info) Description 01/08/2021 Telephone [facility] Imaging [address] [place] [address] Rachel Lozada, RT Social History Tobacco Use Types Packs/Day Years Used Date Smoking Tobacco: Every Day Cigarettes Smokeless Tobacco: Never Comments:5-6 cigs day Alcohol Use Standard Drinks/Week Comments Yes 0 (1 standard drink = 0.6 oz pure alcohol) occationally wine none recently PHQ-2 Answer Date Recorded PHQ-2 Total Score (If total score is 3 or more points, staff should administer the PHQ-9) 0 02/01/2020 Comments No Sex and Gender Information Value Date Recorded Sex Assigned at Not on file Legal Sex Female 11:31 PM VP PRODUCT Gender Identity Not on file Sexual Orientation Not on file 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 on file Not on file Not on file documented as of this encounter Plan of Treatment Scheduled Procedures Name Priority Associated Diagnoses Date/Ti me ESOPHAGOGASTRODUODENOSCOPY Open Access 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 COLONOSCOPY Open Access Personal history of colonic polyps COLONOSCOPY Screening for colon cancer documented as of this encounter Visit Diagnoses Not on filedocumented in this encounter Care Teams Manager Health Relationship Specialty Start Date End Date Wellington Medina MD [address] [place] [address] [address] Sravanthi [address] [place] [address] PCP - General 02/27/17 Shena Acosta MA [address] [place] [address] ACO Care Felt Hanger 08/28/22 08/28/22 Maryann Foy MA [address] [place] [address] ACO Care Felt Hanger 02/23/23 02/23/23 documented as of this encounter
--- OUTSIDE RECORDS SUMMARY | 2025-01-08 19:39 | XMS_ITS ---
Author Organization [facility] Address [address] [place] [address] Care Team Providers Care Line Inspector Name Role Phone Angela Momin Primary Care Provider [phone] JAMAL TAYLOR [phone] REASON FOR VISIT Needs new Gynocologist Encounters Encounter Location Date Provider Diagnosis [facility] [address] [place] [address] 08/18/2024 JAMAL TAYLOR Plan Of Treatment No Information Progress Notes * CATERINA MURPHYSATYAB:1965 ([age] yo F)Acc No.[id number]:08/18/2024 Progress Notes Patient: KERI SINGH Provider: Chip TAYLOR MD :1965 A ge:59 Y S ex:Female Date:08/18/2024 Phone: [facility] [facility] Pcp:Angela Momin Subjective: * Chief Complaints: * 1 . Needs new Gynocologist. * Medical History: Objective: * Vitals: Assessment: Plan: * Treatment: * Billing Information: * Visit Code: * Procedure Codes: * Electronic signature of EMELY TAYLOR MD on 01/08/2025 at 07:38 PM SLEEPING ROOM CLEANER Sign off status: Pending * Provider: Chip TAYLOR MD Date: 08/18/2024 Generated for Sultana weaver/Giuseppe/eTransmitting on: 01/08/2025 07:38 PM SLEEPING ROOM CLEANER
--- OUTSIDE RECORDS SUMMARY | 2025-01-08 19:39 | XMS_ITS ---
Author Organization [facility] Address [address] [place] [address] Care Team Providers Care Electric Spot Welder Name Role Phone Angela Momin Primary Care Provider [phone] Encounters Encounter Location Date Provider [facility] - Angela Momin [address] [place] [address] 08/18/2024 Angela Momin Plan Of Treatment No Information Progress Notes * JEFFREYCATERINA MerchantSATYAB:1965 ([age] yo F)Acc No.[id number]:08/18/2024 Progress Notes Patient: KERI SINGH Provider: Seamus Momin MD :1965 A ge:59 Y S ex:Female Date:08/18/2024 Phone: Address[address] [facility] Subjective: * Chief Complaints: * * Medical History: Objective: * Vitals: Assessment: Plan: * Treatment: * Billing Information: * Visit Code: * Procedure Codes: * Electronic signature of Vinny Momin MD on 01/08/2025 at 07:38 PM [employer] TEAM MEMBER Sign off status: Pending * Provider: Seamus Momin MD Date: 08/18/2024 Generated for Annelisei ng/Fakushalg/eTransmitting on: 01/08/2025 07:38 PM [employer] SALES AND LENDING TEAM MEMBER
--- OUTSIDE RECORDS SUMMARY | 2025-01-08 19:39 | XMS_ITS | Encounter Summary ---
Author Organization [facility] Healthcare Address [address] [place] [address] Care Team Providers Care Assistant Chief Of Police Name Role Phone Wellington Medina MD Primary Care Provider [phone] Shena Acosta MA Unavailable [phone] Maryann Foy MA Unavailable [phone] Encounter Details Date Type Department Care Team (Late st Contact Info) Description 01/08/2021 Telephone [facility] Radiology Echo Lab [address] [place] [address] Lynn Brennan, NATE Social History Tobacco Use Types Packs/Day Years [...] on file Legal Sex Female 11:31 PM CONSTRUCTION IRONWORKER Gender Identity Not on file Sexual Orientation Not on file 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 file Not on file Not on file documented as of this encounter Plan of Treatment Scheduled Procedures Name Priority Associated Diagnoses Date/Ti me ESOPHAGOGASTRODUODENOSCOPY Open Access 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 COLONOSCOPY Open Access Personal history of colonic polyps COLONOSCOPY Screening for colon cancer documented as of this encounter Visit Diagnoses Not on filedocumented in this encounter Care Teams Assistant Chief Of Police Relationship Specialty Start Date End Date Wellington Medina MD [address] [place] [address] DR Sravanthi [address] [place] [address] PCP - General 02/27/17 Shena Acosta MA [address] [place] [address] ACO Care Foreign Exchange Position Clerk 08/28/22 08/28/22 Maryann Foy MA [address] [place] [address] ACO Care Foreign Exchange Position Clerk 02/23/23 02/23/23 documented as of this encounter
--- OUTSIDE RECORDS SUMMARY | 2025-01-08 19:39 | XMS_ITS | Clinical Summary ---
Author Organization [facility] Care Team Providers Care Hand Rug Cleaner Name Role Phone Wellington Medina MD Primary Care Provider [phone] Allergies No known active allergies Medications ergocalciferol [...] (09/26/2022): Added automatically from request for surgery [id number] Spinal stenosis of lumbar region with radiculopa thy 09/26/2022 Overview (09/26/2022): Added automatically from request for surgery [id number] Assessment & Plan (01/15/2023 5:24 PM RADIO SPORTSCASTER): Lumbar spine surgery scheduled. Assessment & Plan (10/05/2022 7:59 PM RADIO SPORTSCASTER): Spinal surgery onhold until patient's glycemic control improves. Primary insomnia 03/11/2021 Escobedo's esophagus 08/14/2020 Overview (08/14/2020): Added automatically from request for surgery [id number] Assessment & Plan (07/28/2024 10:06 PM CDT): [...] 7.5%. Assessment & Plan (01/15/2023 5:23 PM RADIO SPORTSCASTER): Much improved glycemic control with last Hb A1c of 7.1%. Continue current diet, Ozempic and metformin. Patient encouraged to update eye exam Assessment & Plan (10/05/2022 7:59 PM RADIO SPORTSCASTER): Poorly controlled type 2 DM. Target Hb [...] lisinopril. Assessment & Plan (10/05/2022 7:58 PM RADIO SPORTSCASTER): Target BP <140/90. Continue current diet and [...] paroxetine. Assessment & Plan (01/15/2023 5:23 PM RADIO SPORTSCASTER): Mood stable on paroxetine. Assessment & Plan (08/29/2022 12:01 PM CDT): Mood stable on paroxetine. Migraine with aura 06/13/2014 Overview (03/06/2017): [facility] Panic disorder 04/15/2014 Overview (03/04/2017): PANIC DISORDER Polycystic ovaries 04/15/2014 Overview (03/05/2017): POLYCYSTIC OVARIES Hyperlipidemia associated with type 2 diabetes m ashitus 04/15/2014 Overview (03/05/2017): PURE HYPERCHOLESTEROLEM Assessment & Plan (07/28/2024 10:04 PM CDT): Uncontrolled hyperlipidemia due to unintentional medication non adherence due to loss of health insurance. Start rosuvastatin 10 mg daily. Target LDL less than 100. Assessment & Plan (02/25/2023 8:33 PM CDT): Target LDL less than 100. Continue current diet and rosuvastatin. Assessment & Plan (01/15/2023 5:23 PM RADIO SPORTSCASTER): Target LDL less than 100. Continue current diet and rosuvastatin. Assessment & Plan (10/05/2022 7:57 PM RADIO SPORTSCASTER): Target LDL less than 100. Continue current [...] DEPRESSIVE DISORDER NEC Benign hypertension 04/15/2014 01/05/20 19 Overview (03/05/2017): BENIGN HYPERTENSION Chest pain 04/15/2014 01/05/2019 Overview (03/06/2017): CHEST PAIN NOS Encounters Date Type Department Care Team Description 12/02/2024 Orders Only [facility] at the [address] [place] [address] Wellington Medina MD 12/02/2024 Telephone [facility] the [address] [address] Wellington Medina MD Medical Question/Miscellaneous 11/11/2024 Orders Only [facility] the [address] [id number] Wellington Medina MD 11/11/2024 Telephone [facility] the [address] [address] Wellington Medina MD Symptom Based Call from Last 3 Months Immunizations Name Administration Dates Next Due Influenza, Quadrivalent, Spl it, Preservative Free, Intramuscular 08/29/2022,08/30/2021,09/13/2020,11/17 Influenza, Split 10/13/2011 Influenza, Trivalent, IM (MDV) 09/28/2009,2007 Influenza, Unspecified 11/11/2023(Deferr ed: Patient Refused),09/30/2018 Pfizer SARS-CoV-2 Monovalent Vaccination (12+ Yrs) PURPLE 10/16/2021,01/28/2021,01/07/2021 Td, adsorbed 01/24/2000 Tdap 01/24/2011 ZOSTER Recombinant 07/27/2024,10/28/2021 Surgical History Surgery Date Site/Laterality Comments OTHER SURGICAL HISTORY Anemia, iron deficiency: iron supplementation OTHER SURGICAL HISTORY 11/30/2009 - 11/29/2010 large hiatal hernia: lap hernia reduction&Melany OTHER SURGICAL HISTORY urolithiasis: passed stone ABDOMINAL SURGERY BREAST BIOPSY 04/04/2021 Right Medical History Medical History Date Comments Hx Other Medical Anemia, iron de ficiency; Outcome: improved Depression Depression Hx Other Medical large hiatal he rnia Hx Other Medical urolithiasis Diabetes mellitus (HCC) Anemia Colon polyp Hypertension Type 2 diabetes mellitus (HCC) History of transfusion Escobedo esophagus Family History Medical History Relation Name Comments Cervical cancer Daughter 2 Cancer -cerv ical; Coronary artery disease Father Shai nary artery disease; Alzheimer's disease Mother Alzheime r's Disease; Cause of : Alzheimer's Disease Diabetes type II Mother Diabetes -T ype II; Breast cancer Sister 3 Cancer -breast ; Ovarian cancer Sister 4 Cancer -ovari an; Cause of : Cancer -ovarian Kidney failure Sister 5 Renal failure ; Cause of : Renal failure Diabetes type II Sister 6 Diabetes -T ype II; Liver disease Sister 7 liver disease; Anesthesia problems Neg Hx Hip fracture Neg Hx Malig Hypertension Neg Hx Malig Hyperthermia Neg Hx Osteoporosis Neg Hx Pseudochol deficiency Neg Hx Relation Name Status Comments Daughter 1 Alive Daughter 2 Father Mother Sister 1 (Age 49) Sister 2 Sister 3 Sister 4 Sister 5 Sister 6 Sister 7 Social History Tobacco Use Types Packs/Day Years [...] on file Legal Sex Female 11:31 PM RADIO SPORTSCASTER Gender Identity Not on file Sexual Orientation Not on file 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 file Not on file Not on adele e Obstetrics History Last Filed Vital Signs Vital Sign Reading [...] colonic polyps COLONOSCOPY Screening for colon cancer Health Maintenance Due Date Last Done Comments Cervical Cancer Screening 1965 Hepatitis C Screening 1965 Dilated Eye Exam 1965 Pneumococcal vaccine <65 (1 of 2 - PCV) 02/09/1970 Hepatitis B Screening 02/09/1982 DTaP/Tdap/Td Vaccine (2 - Td or Tdap) 01/24/2021 01/24/2011, 01/24/2000 Breast Cancer Screening-Mammogram 03/19/2022 021 Regular Well Visit/Exam 18-64 01/15/2024, 10/28/2021, 02/29/2020 Covid-19 Vaccine (4 - 2023-2 5 season) 2024 10/16/2021, 01/28/2021, 01/07/2021 Influenza Vaccine (#1) 2024 , 08/30/2021, 09/13/2020, Additional history exists Hemoglobin A1C 01/13/2025 07/13/2024, 03/0 07/2023, 01/14/2023, Additional history exists Depression Screening 01/21/2025 01/21/2024, 01/15/2023, 05/15/2022, Additional history exists Foot Exam 01/21/2025 01/21/2024, 12/31, 10/28/2021, Additional history exists Albumin Creatinine Ratio, Urine 07/13/2025 07/13/2024, 11/28/2022, 05/15/2022, Additional history exists Lipid Panel 07/13/2025 07/13/2024, 11/01, 08/29/2022, Additional history exists eGFR 07/13/2025 07/13/2024, 01/29, 02/18/2023, Additional history exists Colon Cancer Screening-Colonoscopy 08/31/2030 08/31/2020, 07/06/2020, 07/11/2010 Colon Cancer Screening-CT Colonography Discontinued 08/31/2020, 07/06/2020, 07/11/2010 Colon Cancer Screening-DNA Stool Discontinued 08/31/2020, 07/06/2020, 07/11/2010 Colon Cancer Screening-FIT Discontinued 08/31, 07/06/2020, 07/11/2010 Colon Cancer Screening-Sigmoidoscopy Discontinued 08/31/2020, 07/06/2020, 07/11/2010 Zoster Vaccine Completed 07/27/2024, 10/28/2021 Medical Devices Implanted Type Area Twister Doffer Device Identifier Shelf Expiration Date Model / Serial / Lot Allosource Canpac Allograft Frozen Nonpurge Graft 10cc Bone Cancellous [id number] - [id number] Implanted:Qty: 1 on 02/17/2023 by Gustabo Lynne MD at [facility] N/A: Spine Lumbar Allosource 10/19/2027 [id number] / / [id number] Nuvasive Inc Reline 5.5mm Lock Open Tulip Spine Screw Bone Nonsterile [id number] - [id number] Implanted:Qty: 4 on 02/17/2023 by Gustabo Lynne MD at [facility] N/A: Spine Lumbar Nuvasive Inc [id number] / / Nuvasive Inc Reline-O 7.5mm 45mm Polyaxial Spine 2s Screw Bone Nonsterile [id number] - [id number] Implanted:Qty: 1 on 02/17/2023 by Gustabo Lynne MD at [facility] N/A: Spine Lumbar Nuvasive Inc [id number] / / Nuvasive Inc. Reline-O 5.5mm 35mm Lordotic Bruno Spinal Titanium Nonsterile [id number] - [id number] Implanted:Qty: 1 on 02/17/2023 by Gustabo Lynne MD at [facility] N/A: Spine Lumbar Nuvasive Inc. [id number] / / Nuvasive Inc. Reline-O 5.5mm 40mm Lordotic Bruno Spinal Titanium Nonsterile [id number] - [id number] Implanted:Qty: 1 on 02/17/2023 by Gustabo Lynne MD at [facility] N/A: Spine Lumbar Nuvasive Inc. [id number] / / Nuvasive Inc Reline-O 8.5mm 50mm Polyaxial Spine 2s Screw Bone Nonsterile [id number] - [id number] Implanted:Qty: 1 on 02/17/2023 by Gustabo Lynne MD at [facility] N/A: Spine Lumbar Nuvasive Inc [id number] / / Nuvasive Inc Screw Bone Spinal Reline-O 7.0x50mm 2s Polyaxial [id number] - [id number] Implanted:Qty: 2 on 02/17/2023 by Gustabo Lynne MD at [facility] N/A: Spine Lumbar Nuvasive Inc [id number] / / Procedures Procedure Name Priority Date/Time Associated Diagnosis Comments ALBUMIN CREATININE RATIO, URINE Routine 07/13/2024 2:04 PM CDT Type 2 diabetes mellitus with hyperglycemia, without long-term current use of insulin (CMS/HCC) (HCC) EGFR Routine 07/13/2024 12:14 PM CDT Type 2 diabetes mellitus with hyperglycemia, without long-term current use of insulin (CMS/HCC) (HCC) Benign essential hypertension Hyperlipidemia associated with type 2 diabetes mellitus (HCC) HEMOGLOBIN A1C Routine 07/13/2024 12:14 PM CDT Type 2 diabetes mellitus with hyperglycemia, without long-term current use of insulin (CMS/HCC) (HCC) LIPID PANEL Routine 07/13/2024 12:14 PM CDT Type 2 diabetes mellitus with hyperglycemia, without long-term current use of insulin (CMS/HCC) (HCC) Hyperlipidemia associated with type 2 diabetes mellitus (HCC) SCREENING MAMMOGRAM BILATERAL W GAGE Schedule Routine, Read Routine (OP Routine) 03/19/2021 11:37 AM CDT Screening mammogram, encounter for COLONOSCOPY 08/31/2020 8:21 AM CDT from Last 3 Months or Most Recently Relevant to Health Maintenance Results * Albumin Creatinine Ratio, Urine (07/13/2024 2:04 PM CDT) Albumin Ur <12.0 mg/L Comment: Interpretive Data No reference range established. Current interpretive data was last revised 2019. Creatinine Ur 79.6 mg/dL [facility] Comment: Interpretive Data No reference range established. Current interpretive data was last revised 2019. Albumin Creatinine Ratio, Ur <15 1 - 29 mg/g [facility] Urine 07/13/2024 2:04 PM CDT 07/13/2024 3:41 PM CDT us Wellington Medina MD LAB URINE ORDERABLES Final Re sult [facility] Department [place] [address] * eGFR (07/13/2024 12:14 PM CDT) eGFR [...] of Race in Diagnosing Kidney Disease, JASN 202). The CKD-EPI equation should not be used for patients with unstable renal function and has not been validated in children and those over 70. Current interpretive data was last reviewed 2021. Blood 07/13/2024 12:1 4 PM CDT 07/13/2024 2:04 PM CDT Wellington Medina MD LAB BLOOD ORDERABLES Final Re sult Performing Organization Address [facility] Co de Phone Number [facility] Department [place] [address] * (ABNORMAL) Hemoglobin A1c (07/13/2024 12:14 PM CDT) Hgb A1C 12.5(H) 4.0 - 5.6 % Estimated Average Glucose 312 mg/dL [facility] Comment: The ADA recommends reporting an estimated [...] ORDERABLES Final Re sult Performing Organization Address [facility] Co de Phone Number [facility] Department [place] [address] * (ABNORMAL) Lipid panel (07/13/2024 12:14 PM [...] revised on 2018. Triglycerides 273(H) <=149 mg/dL [facility] Comment: Interpretive Data Ages < or = [...] revised on 2018. HDL 43 >=40 mg/dL [facility] Comment: Interpretive Data Ages [...] on 2018. LDL, calculated 204(H) <=129 mg/dL [facility] Comment: Interpretive Data Ages < or = [...] last revised on 2018. Chol/HDL ratio 7 [facility] Blood 07/13/2024 12:1 4 PM CDT 07/13/2024 1:58 PM CDT us Wellington Medina MD LAB BLOOD ORDERABLES Final Re sult [facility] Department [place] [address] * Screening Mammogram Bilateral W Gage (03/19/2021 11:37 AM CDT) Anatomical Region Laterality [...] Female Attending MD: Maryann Patterson M.D. Room: [facility] Note Status: Finalized Procedure: Colonoscopy [...] The scope was passed under direct vision.The [id number] [id number] endoscope was introduced throughthe anus and advanced to the cecum, identified by appendiceal orifice and ileocecal valve. The colonoscopy was performed without difficulty. The patient tolerated the procedure well. The quality of the bowel preparation was evaluated using the BBPS (Foreman Bowel Preparation Scale) with scores of:Right Colon [...] biopsy results within 5-7 days, please call [phone] ([phone]). - Repeat colonoscopy in 3 years with 2 day prep - - In the unusual situation that you developabdominal pain, bleeding or other significant problems in the days following this procedure please [phone] ([phone]). After hours and evenings please call [phone] and speak to the GI fellow traffic control technician.Please tell them that Dr. Patterson did your [...] On: 08/31/2020 8:21 AM Recognized by the [place] [employer] for promoting quality in endoscopy us Maryann Patterson MD ENDOSCOPY PROCEDURE S Final Result from Last 3 Months or Most Recently Relevant to Health Maintenance Insurance [facility] CHOICE PLUS [facility] H[facility]/PPO Address: [address] [address] [place] [address] [employer] [facility] [place] [employer] ACCESS [employer]OS Advance Directives For more information, please contact: [phone] * Full Code (Latest Code Status on File) Date Activated Date Inactivated Comments 02/17/2023 9:58 PM 02/20/2023 6:11 PM * Full Code Date Activated Date Inactivated Comments 08/31/2020 7:55 AM 08/31/2020 2:18 PM * Full Code Date Activated Date Inactivated Comments 07/06/2020 10:58 AM 07/06/2020 6:03 PM Care Teams Hand Rug Cleaner Relationship Specialty Start Date End Date Wellington Medina MD [address] [place] [address] [address] [address] PCP - General 02/27/17
[2025-01-08 19:43] VITALS: BP 122/73; PULSE 117; RESP 18; TEMP 36; O2SAT 99
--- NOTE | 2025-01-08 19:43 | ED.GENADULT ---
HPI - General Adult General Chief complaint: Upper Respiratory Infection Stated complaint: cold symptoms Time Seen by Provider: 01/08/25 19:43 Source: patient Mode of arrival: ambulatory Limitations: no limitations History of Present Illness HPI narrative: Here today with cold symptoms. She reports symptoms onset about 2:00 a.m. this morning with feeling sick. She reports stomachache and diarrhea. She reports a fever up to 102?. She reports vomiting this morning which stops for her around 10:00 a.m.. She has taken Tylenol today with some relief of symptoms. She reports she is able to drink okay drinks Sprite and Gatorade today. Reports she was recently able to keep soup and toast down. She is diabetic and is on insulin. She denies any ear pain or problems. Denies any issues with nose such as runny nose or congestion. Denies cough and denies sore throat. Denies headaches. All systems reviewed and are unremarkable except as noted in HPI and below. Related Data Home Medications ?Medication ?Instructions ?Recorded ?Confirmed ?Last Taken ?Type insulin glargine 100 unit/mL (3 unit subcut 01/08/25 Unknown History mL) subcutaneous pen (Basaglar KwikPen U-100 Insulin) lisinopril 20 mg tablet mg 01/08/25 Unknown History metformin 500 mg tablet mg 01/08/25 Unknown History pantoprazole 40 mg tablet,delayed mg PO 01/08/25 Unknown History release paroxetine HCl 20 mg tablet mg PO 01/08/25 Unknown History rosuvastatin 10 mg tablet mg 01/08/25 Unknown History Allergies Allergy/AdvReac Type Severity Reaction Status Date / Time No Known Allergies Allergy Verified 01/08/25 19:47 Review of Systems Review of Systems: CONSTITUTIONAL: Denies fever, chills, or sweats. EYES: Denies visual changes, redness, or discharge. ENT: Denies rhinorrhea, congestion, sore throat, or otalgia. CARDIOVASCULAR: Denies chest pain, palpitations, or edema. RESPIRATORY: Denies cough or dyspnea. GASTROINTESTINAL: Denies abdominal pain. reports nausea, vomiting, and diarrhea earlier in the day that have now improved. GENITOURINARY: Denies dysuria or hematuria. SKIN: Denies rash or itching. MUSCULOSKELETAL: Denies back pain, joint pain, or myalgia. NEUROLOGIC: Denies headache, numbness, or weakness. PSYCHIATRIC: Denies anxiety or depression. All other systems reviewed are negative, except as documented in HPI. PMFSH Comments At time of signature, I have reviewed and agree with nursing past medical, surgical, social and family history unless otherwise noted. Please see nursing chart for further information. There is no relevant family history pertinent to the presenting complaint. Exam Narrative: GENERAL: This is a well-nourished, well-developed patient, in no apparent distress. Acutely ill. HEAD: normocephalic, atraumatic. EYES: Sclera clear/white. Vision is grossly intact. EARS: External ears normal. Hearing grossly intact. NOSE: External nose normal with no obvious nasal discharge. NECK: trachea midline. CARDIOVASCULAR: Regular rhythm without murmurs, gallops, or rubs. Tachycardic with normal blood pressure. RESPIRATORY: Clear to auscultation. Breath sounds equal bilaterally. No wheezes, rales, or rhonchi. GASTROINTESTINAL: Abdomen soft, non-tender, nondistended. No guarding. SKIN: warm, Dry, intact with no suspicious lesions or rash, good texture and turgor. NEURO: awake, alert, and oriented to person, place and time. There were no obvious focal neurologic abnormalities. EXTREMITIES: No joint tenderness, effusion, or edema noted. BACK: Nontender without deformity. Course Course Emergency Course: Patient is aware of diagnosis, understands and agrees to treatment plan. Anticipatory guidance given. Patient agrees to follow-up as directed and is aware of reasons to seek care at the emergency department. Portions of this record may have been created with voice recognition software. Level of Care: Express Care Visit Vital Signs Vital signs: Vital Signs Temperature 36.0 C L 01/08/25 19:43 Pulse Rate 117 H 01/08/25 19:43 Respiratory Rate 18 01/08/25 19:43 Blood Pressure 122/73 01/08/25 19:43 Pulse Oximetry 99 01/08/25 19:43 Oxygen Delivery Room Air 01/08/25 19:43 Temperature 36.0 C L 01/08/25 19:43 Pulse Rate 111 H 01/08/25 20:01 Respiratory Rate 18 01/08/25 19:43 Blood Pressure 122/73 01/08/25 19:43 Pulse Oximetry 98 01/08/25 20:01 Oxygen Delivery Room Air 01/08/25 20:01 Medical Decision Making MDM Narrative Medical decision making narrative: Flu and COVID testing negative today. Results reviewed with patient. Reviewed symptom management with patient. Discussed physical exam findings with patient. Advised supportive measures and signs and symptoms to go to the emergency room. Reviewed importance of staying hydrated. Patient will push fluids. Patient is appropriate for outpatient treatment and follow-up. Differential Diagnosis Differential Diagnosis: Viral gastroenteritis versus gastritis versus influenza vs upper respiratory infection Vital Signs Vital Signs: Vital Signs Temperature 36.0 C L 01/08/25 19:43 Pulse Rate 117 H 01/08/25 19:43 Respiratory Rate 18 01/08/25 19:43 Blood Pressure 122/73 01/08/25 19:43 Pulse Oximetry 99 01/08/25 19:43 Oxygen Delivery Room Air 01/08/25 19:43 Temperature 36.0 C L 01/08/25 19:43 Pulse Rate 111 H 01/08/25 20:01 Respiratory Rate 18 01/08/25 19:43 Blood Pressure 122/73 01/08/25 19:43 Pulse Oximetry 98 01/08/25 20:01 Oxygen Delivery Room Air 01/08/25 20:01 Reviewed. discuss tachycardia with patient. Lab Data Labs: Lab Results 01/08/25 01/08/25 Range/Units 19:43 19:58 POC Influenza A Ag Negative (Negative) POC Influenza B Ag Negative (Negative) POC SARS CoV-2 Ag Negative (Negative) Reviewed. Discharge Plan Discharge Clinical Impression: Viral gastroenteritis Patient Disposition: Home, Self-Care Condition: Stable Instructions: Antibiotic Form, Gastroenteritis (DC), Acute Nausea and Vomiting (DC) Additional Instructions: Your flu and COVID test were negative today. You were diagnosed with viral gastroenteritis. Continue to push fluids and rest. Follow printed instructions provided here. If you are not able to stay hydrated, please proceed to emergency room for IV fluids as discussed here. Call your Primary Care Doctor today to make a follow-up appointment. Go to the ER for any worsening symptoms or concerns. Patient Language: Gabonese Prescriptions: No Action metformin 500 mg tablet lisinopril 20 mg tablet paroxetine HCl 20 mg tablet PO pantoprazole 40 mg tablet,delayed release (DR/EC) PO rosuvastatin 10 mg tablet insulin glargine [Basaglar KwikPen U-100 Insulin] 100 unit/mL (3 mL) insulin pen SUBCUT Follow-up/Referrals: UNKNOWN,DOCTOR [Primary Care Provider] - Stand Alone Forms: Work/School Release IP Time of Disposition: 20:02
[2025-01-08 19:59] LABS: EDCOVIDSCREEN Negative (Negative)
[2025-01-08 20:00] LABS: EDINFLUASCREEN Negative (Negative); EDINFLUBSCREEN Negative (Negative)
[2025-01-08 20:01] VITALS: PULSE 111; O2SAT 98
== END 2025-01-08 20:09 | disposition home or self-care (01) ==
PROVIDERS: Emergency Provider Nurse Practitioner
DX: A08.4 Viral intestinal infection, unspecified (principal); E11.9 Type 2 diabetes mellitus without complications; Z79.4 Long term (current) use of insulin; Z20.822 Contact with and (suspected) exposure to COVID-19
CPT/HCPCS: 87426; 87804; 99212; G0463

== ENCOUNTER 2025-04-13 15:50 | Outpatient (CLI) | payer BC, SELFPAY ==
--- OUTSIDE RECORDS SUMMARY | 2025-04-13 16:04 | XMS_ITS | Encounter Summary ---
Author Organization [facility] Address [address] [place] [address] Phone Care Team Providers Care Lead Sql Developer Name Role Phone Wellington Medina MD Primary Care Provider [phone] Encounter Details Date Type Department Care Team (Late st Contact Info) Description 04/08/2025 Results Follow-Up [facility] Gastroenterology [address] [place] [address] Medical Office [address], [address] [place] [address] Jeronimo Pineda MD [address] [place] [address] Neuroendocrine neoplasm of stomach (HCC) (Primary Dx) Social History Tobacco Use Types Packs/Day Years Used Date Smoking Tobacco: Former Cigarettes 0.3 12 1 11/2009 - 09/2022 Smokeless Tobacco: Never Comments:5-6 cigs day Alcohol [...] making you feel afraid or unsafe? 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 However one polyp with hyperplastic changes and has a benign neuroendocrine tumor. Based on this, I would like to FU with another EGD in 3 months to make sure that there are no otherlesion like this in stomach, and she needs to get her serum gastrin, Anti-Intrinsic and antriparietal cell abx drawn (I am entering the order) in next few week. Thanks documented in this encounter Plan of Treatment Scheduled Orders Name Type Priority Associated Diagnoses Orde r Schedule Gastrin Lab Routine Neuroendocrine neoplasm of stomach (HCC) Expected: 04/15/2025, Expires: 04/08/2026 Parietal cell antibody, IgG Lab Routine Neuroendocrine neoplasm of stomach (HCC) Expected: 04/11/2025, Expires: 04/08/2026 Intrinsic factor blocking antibody Lab Routine Neuroendocrine neoplasm of stomach (HCC) Expected: 04/11/2025, Expires: 04/08/2026 Scheduled Procedures Name Priority Associated Diagnoses Date/Ti me ESOPHAGOGASTRODUODENOSCOPY Open Access Gastroesophageal reflux disease, unspecified whether esophagitis present COLONOSCOPY Open Access History of colonic polyps ESOPHAGOGASTRODUODENOSCOPY Open Access 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 COLONOSCOPY Open Access Personal history of colonic polyps COLONOSCOPY Screening for colon cancer documented as of this encounter Visit Diagnoses Diagnosis Neuroendocrine neoplasm of stomach (HCC)- Primary documented in this encounter Care Teams Lead Sql Developer Relationship Specialty Start Date End Date Wellington Medina MD [address] [place] [address] PCP - General 02/27/17 documented as of this encounter
--- OUTSIDE RECORDS SUMMARY | 2025-04-13 16:04 | XMS_ITS | Encounter Summary ---
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
--- OUTSIDE RECORDS SUMMARY | 2025-04-13 16:04 | XMS_ITS | Encounter Summary ---
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 Gender Identity Not on file Sexual Orientation Not on file 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
--- OUTSIDE RECORDS SUMMARY | 2025-04-13 16:04 | XMS_ITS | Encounter Summary ---
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 Gender Identity Not on file Sexual Orientation Not on file Occupation Industry Job Start Date Job End Date [employer] Not on file Not on file Not [...] on filedocumented in this encounter Care Teams Gambling Counsellor Relationship Specialty Start Date End Date Wellington Medina MD [address] [place] [address] [address] [place] [address] PCP - General 02/27/17 Shena Acosta MA [address] [facility] [address] [place] [address] ACO Care Accreditation Coordinator 08/28/22 08/28/22 Maryann Foy MA [address] [place] [address] ACO Care Accreditation Coordinator 02/23/23 02/23/23 documented as of this encounter
--- OUTSIDE RECORDS SUMMARY | 2025-04-13 16:04 | XMS_ITS | Patient Health Record ---
Author Organization [facility] Address [address] [address] Care Team Providers Care Sewer Pipe Sorter Name Role Phone Angela Momin Primary Care Provider [phone] BRAND[facility] Unavailable [phone] Migration, Provider Unavailable Unavailable Reason For Referral [...] Status Risk Notes Problem Vitamin D deficiency (26785468) Vitamin D deficiency, unspecified (E55.9) Active confirmed Problem Hyperglycemia due to type 2 diabetes mellitus (846857503367885) Type 2 diabetes mellitus with hyperglycemia (E11.65) Active confirmed Problem Hyperlipidemia (43927533) Hyperlipidemia, unspecified (E78.5) Active confirmed Vital Signs Heart Rate 94 /min 07/21/2024 Blood pressure diastolic 80 mm Hg 07/21/2024 Height 66 in 07/21/2024 Blood pressure systolic 137 mm Hg 07/21/2024 Weight 187.0 lbs 07/21/2024 BMI 30.18 kg/m2 07/21/2024 Encounters Encounter Location Date Provider Diagnosis [id number] [place] [address] 10/15/2024 Provider Migration Type 2 diabetes mellitus with hyperglycemia E11.65 [facility], [facility] - [facility] [employer] [address] [place] [address] 07/21/2024 Angela Momin Type 2 diabetes mellitus with hyperglycemia E11.65 ; Hyperlipidemia, unspecified E78.5 ; Other fatigue R53.83 and Vitamin D deficiency, unspecified E55.9 [facility] [address] [place] [address] 07/21/2024 [employer] [facility] [address] [place] [address] 07/27/2024 [facility] - [facility] [employer] [address] [place] [address] 07/28/2024 [facility] [employer] [facility] - [facility] [employer] [address] [place] [address] 08/02/2024 Angela Momin [facility] [address] [place] [address] 08/03/2024 Angela Momin [facility] - [facility] [employer] [address] [place] [address] 08/05/2024 Angela Momin Type 2 diabetes mellitus [...] food labels. Recommended patient to utilize the diabetesfoodhub.Respirics from the ADA website to help with [...] duration of effect and decreased frequency of cabana attendant hypoglycemia. Start at 20 units once daily [...] based snack at bedtime to help reduce cabana attendant hyperglcemia from counterregulatory hormones. She has no [...] potential hospitalizations. freestyle terry 3 plus Lot [id number] 12/30/2024 07/21/2024 Hyperlipidemia, unspecified (ICD-10 - E78.5) [...] procedures, referring and communicating with other health critical care registered nurse, documenting clinical information in the electronic or [...] Insured Coverage Start Date Coverage End Date [facility] [address] [place] [address] [id number] KERI MURPHY Self - patient is the insured Medical (General) History Surgical History Surgery Date(Month/Year) Hiatal Hernia spinal surgery 01/2023
--- OUTSIDE RECORDS SUMMARY | 2025-04-13 16:04 | XMS_ITS | Clinical Summary ---
Author Organization [facility] HealthCare Care Team Providers Care Junior Manufacturing Engineer Name Role Phone Wellington Medina MD Primary Care Provider Allergies No known active allergies Medications ergocalciferol (VITAMIN D) 50,000 unit capsule Take 1 capsule (50,000 Units total) by mouth once a week 4 capsule [address] (PROTONIX) 40 mg EC tablet Take 1 tablet (40 mg total) by mouth daily Take 30 min before breakfast 90 tablet 3 5 026 Active PARoxetine (PAXIL) 20 mg tablet Take 1.5 tablets (30 mg total) by mouth daily 135 tablet 1 5 Active rosuvastatin (CRESTOR) 10 mg tablet Take 1 tablet (10 mg total) by mouth daily 90 tablet 3 5 Active blood-glucose sensor device Apply 1 sensory every 15 days 2 each 5 5 Active lisinopriL (PRINIVIL,ZESTR IL) 20 mg tablet Take 1 tablet by mouth once daily 90 tablet 5 Active insulin degludec (TRESIBA) 100 unit/mL (3 mL) pen for injection Inject 0.2 mL (20 Units total) under the skin nightly 6 mL 5 5 Active semaglutide (OZEMPIC) 0.25 mg or 0.5 mg (2 mg/3 mL) pen injector injectionIndica tions:type 2 diabetes mellitus Inject 0.5 mg under the skin every 7 days 3 mL 5 Active nitrofurantoin monohydrate (MACROBID) 100 mg capsule Take 1 capsule (100 mg total) by mouth 2 (two) times a day for 5 days 10 capsule 5 025 polyethylene glycol (GoLYTELY) 236-22.74-6.74 -5.86 gram solution Take 4,000 mL by mouth once for 1 dose Please follow the instructions that were sent to your patient portal 4000 mL 5 025 Active Problems Problem Noted Date Diagnosed Date Hx of colonic polyps 03/16/2025 History of Burrows's esophagus 03/16/2025 History of colonic polyps 07/27/2024 Assessment & Plan (07/28/2024 10:06 PM CDT): Ordered screening colonoscopy. S/P lumbar fusion 02/17/2023 Synovial cyst 09/26/2022 Overview (09/26/2022): Added automatically from request for surgery [id number] Spinal stenosis of lumbar region with radiculopa thy 09/26/2022 Overview (09/26/2022): Added automatically from request for surgery [id number] Assessment & Plan (01/15/2023 5:24 PM PHOTOTYPESETTING EQUIPMENT MONITOR): Lumbar spine surgery scheduled. Assessment & Plan (10/05/2022 7:59 PM PHOTOTYPESETTING EQUIPMENT MONITOR): Spinal surgery onhold until patient's glycemic control improves. Primary insomnia 03/11/2021 Burrows's esophagus 08/14/2020 Overview (08/14/2020): Added automatically from request for surgery [id number] Assessment & Plan (07/28/2024 10:06 PM CDT): Continue with pantoprazole. Due for re-evaluation with an EGD. Type 2 diabetes mellitus wit h hyperglycemia, with long-term current use of insulin 05/09/2019 Assessment & Plan (02/16/2025 9:15 PM CDT): Uncontrolled type 2 diabetes. Target HGB A1c less than 7%. Start Ozempic. Refilled Tresiba. Target HGB A1c less than 7%. Patient did not tolerate metformin due to GI side effects. Check CMP, FLP, spot urine and HGB A1c. Assessment & Plan (07/28/2024 10:05 PM CDT): [...] 7.5%. Assessment & Plan (01/15/2023 5:23 PM PHOTOTYPESETTING EQUIPMENT MONITOR): Much improved glycemic control with last Hb A1c of 7.1%. Continue current diet, Ozempic and metformin. Patient encouraged to update eye exam Assessment & Plan (10/05/2022 7:59 PM PHOTOTYPESETTING EQUIPMENT MONITOR): Poorly controlled type 2 DM. Target Hb [...] (03/05/2017): Benign essential hypertension Assessment & Plan (02/16/2025 9:14 PM CDT): Uncontrolled hypertension. Continue current diet lisinopril. Target BP less than 140/90. Check CBC and CMP. Assessment & Plan (07/28/2024 10:05 PM CDT): Target BP less than 130/80. Continue current diet and lisinopril Assessment & Plan (02/25/2023 8:33 PM CDT): Target BP less than 130/80. Continue current diet, metoprolol and lisinopril. Assessment & Plan (10/05/2022 7:58 PM PHOTOTYPESETTING EQUIPMENT MONITOR): Target BP <140/90. Continue current diet and medication Assessment & Plan (08/29/2022 12:00 PM CDT): Target BP less than 140/90. Continue current diet and medications. Assessment & Plan (05/15/2022 12:54 PM CDT): Target BP <140/90. Continue current diet, lisinopril and metoprolol. Check CBC and CMP. Moderate episode of recurrent major depressive d isorder 01/16/2016 Overview (03/06/2017): Chronic major depressive disorder, recurrent episode Assessment & Plan (02/16/2025 9:17 PM CDT): Mood stable on paroxetine. Assessment & Plan (07/28/2024 10:05 PM CDT): Continue with Paxil. Assessment & Plan (02/25/2023 8:34 PM CDT): Mood stable on paroxetine. Assessment & Plan (01/15/2023 5:23 PM PHOTOTYPESETTING EQUIPMENT MONITOR): Mood stable on paroxetine. Assessment & Plan (08/29/2022 12:01 PM CDT): Mood stable on paroxetine. Migraine with aura 06/13/2014 Overview (03/06/2017): [facility] MIGRNE WO NTRC MGRN Panic disorder 04/15/2014 Overview (03/04/2017): PANIC DISORDER Polycystic ovaries 04/15/2014 Overview (03/05/2017): POLYCYSTIC OVARIES Hyperlipidemia associated with type 2 diabetes m ellitus 04/15/2014 Overview (03/05/2017): PURE HYPERCHOLESTEROLEM Assessment & Plan (02/16/2025 9:14 PM CDT): Target LDL less than 100. Continue current diet and rosuvastatin. Check CMP and FLP. Assessment & Plan (07/28/2024 10:04 PM CDT): Uncontrolled hyperlipidemia due to unintentional medication non adherence due to loss of health insurance. Start rosuvastatin 10 mg daily. Target LDL less than 100. Assessment & Plan (02/25/2023 8:33 PM CDT): Target LDL less than 100. Continue current diet and rosuvastatin. Assessment & Plan (01/15/2023 5:23 PM PHOTOTYPESETTING EQUIPMENT MONITOR): Target LDL less than 100. Continue current diet and rosuvastatin. Assessment & Plan (10/05/2022 7:57 PM PHOTOTYPESETTING EQUIPMENT MONITOR): Target LDL less than 100. Continue current [...] Encounters Date Type Department Care Team Description 04/08/2025 Results Follow-Up [facility] Gastroenterology [facility] Medical Office Building [address], [address] [place] [address] Jeronimo Pineda MD Neuroendocrine neoplasm of stomach (HCC) (Primary Dx) 04/05/2025 9:11 AM CDT Anesthesia Event [facility] [address] [place] [address] [address] [place] [address] Tex Whitehead MD Barker, Anthony 04/05/2025 9:00 AM CDT - 04/05/2025 10:00 AM CDT Surgery [facility] [address] [place] [address] Jeronimo Pineda MD COLONOSCOPY 04/05/2025 8:14 AM CDT - 04/05/2025 11:18 AM CDT Hospital Encounter [facility] [address] [place] [address] Jeronimo Pineda MD Hx of colonic polyps; Gastroesophageal reflux disease, unspecified whether esophagitis present; History of Burrows's esophagus Discharge Disposition: Discharge to home or self care 04/03/2025 Telephone [facility] Gastroenterology [address] [place] [address] Medical Office Building [address], [address] [place] [address] Amelia Villagomez RN Pt returned call after msg left by OA schedulers 03/31/2025 Telephone [facility] Specialty Services [address] [place] [phone] Pearl Hudson RN GI Preprocedure 03/29/2025 Telephone [facility] Specialty Services [address] [place] [phone] Pearl Hudson RN GI Preprocedure 03/23/2025 2:50 PM CDT - 03/23/2025 11:59 PM CDT Hospital Encounter [facility] Advanced Medicine Breast Imaging [facility] ([facility] [address] [place] [address] Screening mammogram, encounter for Discharge Disposition: Discharge to home or self care 03/16/2025 Telephone [facility] Gastroenterology [address] [place] [address] Advanced Medicine 12th [place] [address] [place] [phone] Sondra Starr gi pre procedure assessment 03/15/2025 Telephone [facility] Specialty Services [address] [place] [phone] Lupe Phan, CABRERA 03/15/2025 Telephone [facility] Gastroenterology [address] [place] [address] Advanced Medicine 12th [place] [address] [place] [phone] Nati Hernandez LPN 03/14/2025 Orders Only [facility] Medical Group at the [address] [phone] Wellington Medina MD Gastroesophageal reflux disease, unspecified whether esophagitis present (Primary Dx) 03/14/2025 Telephone [facility] Medical Group at the [address] [phone] Wellington Medina MD Medical Question/Miscellaneous 03/14/2025 Telephone [facility] Gastroenterology [address] [place] [address] 12th [place] [address] [place] [address] Nati Hernandez LPN 03/13/2025 Orders Only [facility] Medical Group at the [address] [phone] Wellington Medina MD 03/13/2025 Telephone [facility] Medical Group at the [address] [phone] Wellington Medina MD Symptom Based Call 02/24/2025 Telephone [facility] Medical Group at the [address] [phone] Wellington Medina MD 02/22/2025 Telephone [facility] Specialty Services [address] [place] [address] Lupe Phan RN 02/18/2025 Results Follow-Up [facility] Medical Group at the [address] [phone] Wellington Medina MD 02/16/2025 11:12 AM CDT - 02/16/2025 11:59 PM CDT Hospital Encounter [address] [address] Discharge Disposition: Discharge to home or self care 02/16/2025 9:15 AM CDT Office Visit [facility] Medical Group at the [address] [phone] Wellington Medina MD Hyperlipidemia associated with type 2 diabetes mellitus (HCC) (Primary Dx); Type 2 diabetes mellitus with hyperglycemia, without long-term current use of insulin (HCC); Benign essential hypertension; History of colonic polyps; Need for vaccination; Screening mammogram, encounter for; Moderate episode of recurrent major depressive disorder (HCC) 02/16/2025 Telephone [facility] Medical Group at the [address] [place] [address] Wellington Medina MD Authorization/Certifica tion 02/16/2025 Orders Only [facility] at the [address] [phone] Wellington Medina MD Type 2 diabetes mellitus with hyperglycemia, without long-term current use of insulin (HCC); Benign essential hypertension; Hyperlipidemia associated with type 2 diabetes mellitus (HCC) 02/08/2025 Telephone [facility] Medical Group at the [address] [place] [address] Wellington Medina MD from Last 3 Months Immunizations Immunization Administration Dates Next Due Influenza, Quadrivalent, Spl it, Preservative Free, Intramuscular 08/29/2022,08/30/2021,09/13/2020,11/17 Influenza, Split 10/13/2011 Influenza, Trivalent, IM (MDV) 09/28/2009,2007 Influenza, Trivalent, Preser vative Free, Intramuscular 02/16/2025 Influenza, Unspecified 11/11/2023(Deferr ed: Patient Refused),09/30/2018 Pfizer SARS-CoV-2 Monovalent Vaccination (12+ Yrs) PURPLE 10/16/2021,01/28/2021,01/07/2021 Pneumococcal Conjugate Pcv20 02/16/2025 Td, adsorbed 01/24/2000 Tdap 01/24/2011 ZOSTER Recombinant 07/27/2024,10/28/2021 Surgical History Surgery Date Site/Laterality Comments OTHER SURGICAL HISTORY Anemia, iron deficiency: iron supplementation OTHER SURGICAL HISTORY 11/30/2009 - 11/29/2010 large hiatal hernia: lap hernia reduction&Melany OTHER SURGICAL HISTORY urolithiasis: passed stone ABDOMINAL SURGERY BREAST BIOPSY 04/04/2021 Right SPINAL FIXATION SURGERY 11/30/2022 - 11/29/2023 Medical History Medical History Date Comments Hx Other Medical Anemia, iron de ficiency; Outcome: improved Depression Depression Hx Other Medical large hiatal he rnia Hx Other Medical urolithiasis Diabetes mellitus (HCC) Anemia Colon polyp Hypertension Type 2 diabetes mellitus (HCC) History of transfusion Burrows esophagus Family History Medical History Relation Name Comments Heart attack Brother Cervical cancer Daughter 2 Cancer -cerv ical; [...] deficiency Neg Hx Relation Name Status Comments Brother Daughter 1 Alive Daughter 2 Father Mother [...] on file Legal Sex Female 11:31 PM PHOTOTYPESETTING EQUIPMENT MONITOR Gender Identity Not on file Sexual Orientation Not on file 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 Not on file Not on adele e Obstetrics History Last Filed Vital Signs Vital Sign Reading Time Taken Comments Blood Pressure 118/61 04/05/2025 10:52 AM CDT Pulse 83 04/05/2025 10:52 AM CDT Temperature 36 C (96.8 F) 04/05/2025 10:22 AM CDT Respiratory Rate 11 04/05/2025 10:52 AM CDT Oxygen Saturation 93% 04/05/2025 10:52 AM CDT Inhaled Oxygen Concentration - - Weight 86.2 kg (190 lb) 04/05/2025 8:28 AM CDT Height 165.1 cm (5' 5 ) 04/05/2025 8:28 AM CDT Body Mass Index 31.62 04/05/2025 8:28 AM CDT Plan of Treatment Scheduled Procedures Name Priority Associated Diagnoses Date/Ti me ESOPHAGOGASTRODUODENOSCOPY Open Access Gastroesophageal reflux disease, unspecified whether esophagitis present COLONOSCOPY Open Access History of colonic polyps ESOPHAGOGASTRODUODENOSCOPY Open Access Burrows's esophagus without dysplasia COLONOSCOPY Open Access Personal history of colonic polyps COLONOSCOPY Screening for colon cancer Health Maintenance Due Date Last Done Comments Cervical Cancer Screening 1965 Hepatitis C Screening 1965 Dilated Eye Exam 1965 Hepatitis B Screening 02/09/1982 DTaP/Tdap/Td Vaccine (2 - Td or Tdap) 01/24/2021 01/24/2011, 01/24/2000 Regular Well Visit/Exam 18-64 01/15/2024, 10/28/2021, 02/29/2020 Covid-19 Vaccine (2023-2 5 season) 2024 10/16/2021, 01/28/2021, 01/07/2021 Depression Screening 01/21/2025 01/21/2024, 01/15/2023, 05/15/2022, Additional history exists Hemoglobin A1C 08/19/2025 02/16/2025, 06/30, 02/05/2023, Additional history exists Albumin Creatinine Ratio, Urine 02/16/2026 02/16/2025, 07/13/2024, 11/28/2022, Additional history exists Foot Exam 02/16/2026 02/16/2025, 01/01, 01/15/2023, Additional history exists Lipid Panel 02/16/2026 02/16/2025, 06/30, 11/28/2022, Additional history exists eGFR 02/16/2026 02/16/2025, 06/30, 02/19/2023, Additional history exists Breast Cancer Screening-Mammogram 03/23/2026 025, 03/19/2021 Colon Cancer Screening-Colonoscopy 04/05/2035 04/05/2025, 08/31/2020, 07/06/2020, Additional history exists Zoster Vaccine Completed 07/27/2024, 10/28/2021 Influenza Vaccine Completed 02/16/2025, , 08/30/2021, Additional history exists Pneumococcal vaccine <65 Completed 02/16/2025 Colon Cancer Screening-CT Colonography Discontinued 04/05/2025, 08/31/2020, 07/06/2020, Additional history exists Colon Cancer Screening-DNA Stool Discontinued 04/05/2025, 08/31/2020, 07/06/2020, Additional history exists Colon Cancer Screening-FIT Discontinued 04/05, 08/31/2020, 07/06/2020, Additional history exists Colon Cancer Screening-Sigmoidoscopy Discontinued 04/05/2025, 08/31/2020, 07/06/2020, Additional history exists Medical Devices Implanted Type Area Jewel Stringer Device Identifier Shelf Expiration Date Model / Serial / Lot Allosource Canpac Allograft Frozen Nonpurge Graft 10cc Bone Cancellous [id number] - [id number] Implanted:Qty: 1 on 02/17/2023 by Gustabo Lynne MD at [facility] N/A: Spine Lumbar Allosource 10/19/2027 [id number] / / [id number] [employer] Reline 5.5mm Lock Open Tulip Spine Screw Bone Nonsterile [id number] - [id number] Implanted:Qty: 4 on 02/17/2023 by Gustabo Lynne MD at [facility] N/A: Spine Lumbar [employer] [id number] / / [employer] Reline-O 7.5mm 45mm Polyaxial Spine 2s Screw Bone Nonsterile [id number] - [id number] Implanted:Qty: 1 on 02/17/2023 by Gustabo Lynne MD at [facility] N/A: Spine Lumbar [employer] [id number] / / [employer]. Reline-O 5.5mm 35mm Lordotic Bruno Spinal Titanium Nonsterile [id number] - [id number] Implanted:Qty: 1 on 02/17/2023 by Gustabo Lynne MD at [facility] N/A: Spine Lumbar [employer]. [id number] / / [employer]. Reline-O 5.5mm 40mm Lordotic Bruno Spinal Titanium Nonsterile [id number] - [id number] Implanted:Qty: 1 on 02/17/2023 by Gustabo Lynne MD at [facility] N/A: Spine Lumbar [employer]. [id number] / / [employer] Reline-O 8.5mm 50mm Polyaxial Spine 2s Screw Bone Nonsterile [id number] - [id number] Implanted:Qty: 1 on 02/17/2023 by Gustabo Lynne MD at [facility] N/A: Spine Lumbar [employer] [id number] / / [employer] Screw Bone Spinal Reline-O 7.0x50mm 2s Polyaxial [id number] - [id number] Implanted:Qty: 2 on 02/17/2023 by Gustabo Lynne MD at [facility] N/A: Spine Lumbar [employer] [id number] / / Procedures Procedure Name Priority Date/Time Associated Diagnosis Comments POCT GLUCOSE DEVICE Routine 04/05/2025 10:40 AM CDT SURGICAL PATHOLOGY Routine 04/05/2025 9:27 AM CDT Hx of colonic polyps Gastroesophageal reflux disease, unspecified whether esophagitis present History of Burrows's esophagus TX AN PROCEDURE PLACEHOLDER Routine 05/2025 9:25 AM CDT TX AN ELECTIVE ENDOTRACHEAL AIRWAY Routine 04/05/2025 9:25 AM CDT EGD 04/05/2025 9:11 AM CDT ENDO ADD ON ESOPHAGOGASTRODUODENOSCOPY BIOPSY 04/05/2025 9:11 AM CDT Hx of colonic polyps Gastroesophageal reflux disease, unspecified whether esophagitis present History of Burrows's esophagus ESOPHAGOGASTRODUODENOSCOPY REMOVAL SNARE 04/05/2025 9:11 AM CDT Hx of colonic polyps Gastroesophageal reflux disease, unspecified whether esophagitis present History of Burrows's esophagus COLONOSCOPY 04/05/2025 9:11 AM CDT Hx of colonic polyps Gastroesophageal reflux disease, unspecified whether esophagitis present History of Burrows's esophagus COLONOSCOPY 04/05/2025 9:09 AM CDT POCT GLUCOSE DEVICE Routine 04/05/2025 8:27 AM CDT SCREENING MAMMOGRAM BILATERA L W NARENDRA Schedule Routine, Read Routine (OP Routine) 03/23/2025 3:02 PM CDT Screening mammogram, encounter for EGFR Routine 02/16/2025 10:10 AM CDT Hyperlipidemia associated with type 2 diabetes mellitus (HCC) Type 2 diabetes mellitus with hyperglycemia, without long-term current use of insulin (HCC) Benign essential hypertension DIFFERENTIAL AUTO Routine 02/16/2025 10:10 AM CDT Type 2 diabetes mellitus with hyperglycemia, without long-term current use of insulin (HCC) Benign essential hypertension GLUCOSE, RANDOM (OUTREACH) Routine 02/16 10:10 AM CDT Hyperlipidemia associated with type 2 diabetes mellitus (HCC) Type 2 diabetes mellitus with hyperglycemia, without long-term current use of insulin (HCC) Benign essential hypertension COMPREHENSIVE METABOLIC PANE L WITHOUT GLUCOSE (OUTREACH) Routine 02/16/2025 10:10 AM CDT Hyperlipidemia associated with type 2 diabetes mellitus (HCC) Type 2 diabetes mellitus with hyperglycemia, without long-term current use of insulin (HCC) Benign essential hypertension LIPID PANEL Routine 02/16/2025 10:10 AM CDT Hyperlipidemia associated with type 2 diabetes mellitus (HCC) Type 2 diabetes mellitus with hyperglycemia, without long-term current use of insulin (HCC) Benign essential hypertension HEMOGLOBIN A1C Routine 02/16/2025 10:10 AM CDT Type 2 diabetes mellitus with hyperglycemia, without long-term current use of insulin (HCC) COMPREHENSIVE METABOLIC PANE L (OUTREACH) Routine 02/16/2025 10:10 AM CDT Hyperlipidemia associated with type 2 diabetes mellitus (HCC) Type 2 diabetes mellitus with hyperglycemia, without long-term current use of insulin (HCC) Benign essential hypertension CBC WITH AUTO DIFFERENTIAL Routine 02/16 10:10 AM CDT Type 2 diabetes mellitus with hyperglycemia, without long-term current use of insulin (HCC) Benign essential hypertension ALBUMIN CREATININE RATIO, URINE Routine 02/16/2025 10:10 AM CDT Type 2 diabetes mellitus with hyperglycemia, without long-term current use of insulin (HCC) from Last 3 Months Results * POCT glucose (04/05/2025 10:40 AM CDT) Glucose, POC 143 70 - 199 mg/dL Blood 04/05/2025 10:4 0 AM CDT 04/05/2025 10:40 AM CDT us Jeronimo Pineda MD LAB POCT ORDERABLES - DEVICE Final Result MABLE [facility] Department [place] [address] * Surgical pathology (04/05/2025 9:27 AM CDT) Tissue (Gastric/Stomach biopsy) 04/05/2025 9:27 AM CDT Tissue specimen (specimen) (Gastric/Stomach biopsy) 04/05/2025 9:29 AM CDT Tissue specimen (specimen) (Polyp(s), colon/colorectal, esophageal, gastric) 04/05/2025 9:30 AM CDT Tissue specimen (specimen) (Esophageal biopsy) 04/05/2025 9:33 AM CDT Narrative PATHOLOGY [facility] - 04/07/2025 2:26 PM CDT EPIC results best viewed via link to PDF [facility]yn [facility] [place] [address] Note to Patients: This report may contain a detailed description of human tissue sent by a health care provider to the laboratory for pathologic evaluation. The content of this report is essential for diagnosis and may provide important critical findings. This information may be unfamiliar to patients to review without a medical professional present. It is advised that the patient review this report in the presence of a health care provider who can answer questions and explain the details. SURGICAL PATHOLOGY REPORT FINAL Patient Name: TESSA MURPHY Gender: F : 1965 (Age: 60) Address: [address] [place] [address] Hospital #: [id number] Taken:04/05/2025 Received:04/05/2025 Reported: 04/07/2025 Patient Type: [facility] Service: Gastro Location: Physician(s): Lona Arroyo Dr., M.D. Diagnosis: A. Stomach, antrum, biopsy - Normal antral mucosa - No H.pylori organisms are identified by H&E examination B. Stomach, body, biopsy - Normal oxyntic mucosa - No H.pylori organisms are identified by H&E examination C. 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 Esophagus, distal, Burrows's esophagus, biopsy - Esophageal squamous and cardio-oxyntic mucosa with mild chronic inflammation and reactive changes - Negative for intestinal metaplasia or dysplasia /04/06/2025 11:40 By this signature, I attest that the above diagnosis is based upon my personal examination of the slides(and/or other material indicated in the diagnosis). Kobe Merlos M.D. Report Electronically Reviewed and Signed Out By Kobe Merlos M.D. 04/07/2025 14:26:48 Microscopic Description and Comment: Part C: Immunostains for CAM5.2, synaptophysin, chromogranin A, and Ki-67 were performed. The nests of small round blue cells stain positively with CAM5.2, synaptophysin, and chromogranin A. The Ki-67 proliferative index of these cells is 3.8 % (19 tumor cells out of 500 count; manual morphometric method). Dominique Garcia D.O. History: The patient is a 60-year-old woman presenting with a history of colonic polyps; gastroesophageal reflux disease, unspecified whether esophagitis present; history of Burrows's esophagus. Operative procedure: Colonoscopy; upper endoscopy removal snare with biopsy. Specimen(s) Received: A: Cold biopsies, antrum B: Cold biopsies, gastric body C: Gastric polyps, cold snare D: Cold biopsies, distal burrows's esophagus Gross Description: Received in four formalin jars labeled with the patient's identifiers. A. Labeled antrum and consists of multiple burnett fragment(s) of soft tissue measuring 1.0 x 0.5 x 0.2 cm in aggregate. Labeled A1. Jar 0. B. Labeled gastric body and consists of three burnett fragment(s) of soft tissue measuring 0.2-0.7 cm each in greatest dimension. Labeled B1. Jar 0. C. Labeled gastric polyps and consists of three burnett fragment(s) of soft tissue measuring 0.3-0.8 cm each in greatest dimension. Labeled C1. Jar 0. D. Labeled distal, Burrows's esophagus and consists of multiple burnett-pink fragment(s) of soft tissue measuring 0.8 x 0.5 x 0.2 cm in aggregate. Labeled D1. Jar 0. sxst/04/05/2025 12:35 PA(s): Poly Toro By this signature, I attest that the above diagnosis is based upon my personal examination of the slides(and/or other material). Addenda/Procedures The performance characteristics of some immunohistochemical stains, fluorescence in-situ hybridization tests and immunophenotyping by flow cytometry cited in this report (if any) were determined by the Surgical Pathology and Flow Cytometry Departments at [facility] as part of an ongoing quality assurance consultant program and in compliance with federally mandated regulations drawn from the Clinical Laboratory Improvement Act of 1988 (CLIA '88). Some of these tests rely on the use of analyte specific reagents and are subject to specific labeling requirements by the US Food and Drug Administration. Such diagnostic tests may only be performed in a facility that is certified by the Department of Health and Human Services as a high complexity laboratory under CLIA '88. The FDA has determined that such clearance or approval is not necessary. This test is used for clinical purposes. It should not be regarded as investigational or for research. Nevertheless, federal rules concerning the medical use of analyte specific reagents require that the [id number]|2025-04-13 16:04:00|2025-04-13 16:03:00|XMS_ITS|BKG DAEMON|External Medical Summaries|[id number]|" Progress note - 10/15/2024 Created on: April 13, 2025 TESSA MURPHY : 1965 Sex: Female Author Organization [employer] [facility] Address [address] [address] Care Team Providers Care Junior Manufacturing Engineer Name Role Phone Angela Momin Primary Care Provider Migration, Provider Unavailable Unavailable REASON FOR VISIT [facility] Conversion Encounter Medications Medication SIG (Take, Route, [...] Active Encounters Encounter Location Date Provider Diagnosis [facility] [address] [facility] [place] [address] 10/15/2024 Provider Migration Type 2 diabetes mellitus [...] for 90 days 08/05/2024 Progress Notes * TABATHA MURPHYB:1965 ([age] yo F)Acc No.[id number]:10/15/2024 Patient: TESSA SINGH Provider: Barrett Lopez :1965 A ge:59 Y S ex:Female Date:10/15/2024 Phone: Address:[address] [id number] Pcp:Angela Momin Subjective: * Chief Complaints: * 1 . [facility] Conversion Encounter. * Medical History: * Medications: [...] Electronic signature of Prov ider Migration on 04/13/2025 at 04:03 PM CDT Sign off status: Pending * Provider: Barrett kendrick Migration Date: 12/15/2023 Generated for Sultana weaver/Giuseppe/Vi on: 0 04/13/2025 04:03 PM CDT "
--- OUTSIDE RECORDS SUMMARY | 2025-04-13 16:04 | XMS_ITS | Referral Summary ---
Author Organization [facility] HealthCare Care Team Providers Care Pulp Piler Name Role Phone Wellington Medina MD Primary Care Provider [phone] Encounters Date Type Department Care Team Description 04/08/2025 Results Follow-Up [facility] [address] [place] [address] Office Building [address], [address] [place] [phone] Jeronimo Pineda MD Neuroendocrine neoplasm of stomach (HCC) (Primary Dx) 04/05/2025 9:00 AM CDT - 04/05/2025 10:00 AM CDT Surgery [facility] [address] [place] [address] Jeronimo Pineda MD COLONOSCOPY 04/05/2025 9:11 AM CDT Anesthesia Event [facility] [address] [place] [address] Tex Whitehead MD Barker, Anthony 04/05/2025 8:14 AM CDT - 04/05/2025 11:18 AM CDT Hospital Encounter [facility] [address] [place] [address] Jeronimo Pineda MD Hx of colonic polyps; Gastroesophageal reflux disease, unspecified whether esophagitis present; History of Burrows's esophagus Discharge Disposition: Discharge to home or self care 04/03/2025 Telephone [facility] [address] [place] [address] Medical Office Building 4, [address] [place] [phone] Amelia Villagomez, CABRERA Pt returned call after msg left by OA schedulers 03/31/2025 Telephone [facility] Specialty Services [address] [place] [phone] Pearl Hudson, RN GI Preprocedure 03/29/2025 Telephone [facility] Specialty Services [address] [place] [phone] Pearl Hudson, RN GI Preprocedure 03/23/2025 2:50 PM CDT - 03/23/2025 11:59 PM CDT Hospital Encounter [facility] Breast Imaging [facility] ([facility]) [address] [place] [address] Screening mammogram, encounter for Discharge Disposition: Discharge to home or self care 03/16/2025 Telephone [facility] [address] [place] [address] [place] [address] [place] [phone] Sondra Starr gi pre procedure assessment 03/15/2025 Telephone [facility] Specialty Services [address] [place] [phone] Lupe Phan RN 03/15/2025 Telephone [facility] [address] [place] [address] [place] [address] [place] [address] Nati Hernandez LPN 03/14/2025 Orders Only [facility] Medical Group at the [address] [place] [phone] Wellington Medina MD Gastroesophageal reflux disease, unspecified whether esophagitis present (Primary Dx) 03/14/2025 Telephone [facility] Medical Group at the [address] [place] [phone] Wellington Medina MD Medical Question/Miscellaneous 03/14/2025 Telephone [facility] [address] [place] [address] [place] [address] [place] [address] Nati Hernandez LPN 03/13/2025 Orders Only [facility] Medical [facility] at the [address] [phone] Wellington Medina MD 03/13/2025 Telephone [facility] at the [address] [phone] Wellington Medina MD Symptom Based Call 02/24/2025 Telephone [facility] at the [address] [phone] Wellington Medina MD 02/22/2025 Telephone [facility] Specialty Services [address] [place] [phone] Lupe Phan RN 02/18/2025 Results Follow-Up [facility] at the [address] [phone] Wellington Medina MD 02/16/2025 11:12 AM CDT - 02/16/2025 11:59 PM CDT Hospital Encounter [address] [address] Discharge Disposition: Discharge to home or self care 02/16/2025 Telephone [facility] at the [address] [phone] Wellington Medina MD Authorization/Certifica tion 02/16/2025 Orders Only [facility] at the [address] [phone] Wellington Medina MD Type 2 diabetes mellitus with hyperglycemia, without long-term current use of insulin (HCC); Benign essential hypertension; Hyperlipidemia associated with type 2 diabetes mellitus (HCC) 02/16/2025 9:15 AM CDT Office Visit [facility] at the [address] [phone] Wellington Medina MD Hyperlipidemia associated with type 2 diabetes mellitus (HCC) (Primary Dx); Type 2 diabetes mellitus with hyperglycemia, without long-term current use of insulin (HCC); Benign essential hypertension; History of colonic polyps; Need for vaccination; Screening mammogram, encounter for; Moderate episode of recurrent major depressive disorder (HCC) 02/08/2025 Telephone [facility] at the [address] [phone] Wellington Medina MD from Last 3 Months Allergies No known [...] (09/26/2022): Added automatically from request for surgery [id number] Spinal stenosis of lumbar region with radiculopa thy 09/26/2022 Overview (09/26/2022): Added automatically from request for surgery [id number] Assessment & Plan (01/15/2023 5:24 PM EXTENSION AGENT): Lumbar spine surgery scheduled. Assessment & Plan (10/05/2022 7:59 PM EXTENSION AGENT): Spinal surgery onhold until patient's glycemic control improves. Primary insomnia 03/11/2021 Burrows's esophagus 08/14/2020 Overview (08/14/2020): Added automatically from request for surgery [id number] Assessment & Plan (07/28/2024 10:06 PM CDT): [...] 7.5%. Assessment & Plan (01/15/2023 5:23 PM EXTENSION AGENT): Much improved glycemic control with last Hb A1c of 7.1%. Continue current diet, Ozempic and metformin. Patient encouraged to update eye exam Assessment & Plan (10/05/2022 7:59 PM EXTENSION AGENT): Poorly controlled type 2 DM. Target Hb [...] lisinopril. Assessment & Plan (10/05/2022 7:58 PM EXTENSION AGENT): Target BP <140/90. Continue current diet and [...] paroxetine. Assessment & Plan (01/15/2023 5:23 PM EXTENSION AGENT): Mood stable on paroxetine. Assessment & Plan (08/29/2022 12:01 PM CDT): Mood stable on paroxetine. Migraine with aura 06/13/2014 [facility] (03/06/2017[facility] Panic disorder 04/15/2014 Overview (03/04/2017): [...] rosuvastatin. Assessment & Plan (01/15/2023 5:23 PM EXTENSION AGENT): Target LDL less than 100. Continue current diet and rosuvastatin. Assessment & Plan (10/05/2022 7:57 PM EXTENSION AGENT): Target LDL less than 100. 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) Not on file Not on [...] colon cancer Medical Devices Implanted Type Area Access Assoc Device Identifier Shelf Expiration Date Model / Serial / Lot Allosource Canpac Allograft Frozen Nonpurge Graft 10cc Bone Cancellous [id number] - [id number] Implanted:Qty: 1 on 02/17/2023 by Gustabo Lynne MD at [facility] N/A: Spine Lumbar Allosource 10/19/2027 [id number] / / [id number] Nuv[employer] Reline 5.5mm Lock Open Tulip Spine Screw Bone Nonsterile [id number] - [id number] Implanted:Qty: 4 on 02/17/2023 by Gustabo Lynne MD at [facility] N/A: Spine Lumbar [employer] [id number] / / [employer] Reline-O 7.5mm 45mm Polyaxial Spine 2s Screw Bone Nonsterile [id number] - [id number] Implanted:Qty: 1 on 02/17/2023 by Gustabo Lynne MD at [facility] N/A: Spine Lumbar [employer] [id number] / / [employer]. Reline-O 5.5mm 35mm Lordotic Bruno Spinal Titanium Nonsterile [id number] - [id number] Implanted:Qty: 1 on 02/17/2023 by Gustabo Lynne MD at [facility] N/A: Spine Lumbar [employer]. [id number] / / [employer]. Reline-O 5.5mm 40mm Lordotic Bruno Spinal Titanium Nonsterile [id number] - [id number] Implanted:Qty: 1 on 02/17/2023 by Gustabo Lynne MD at [facility] N/A: Spine Lumbar [employer]. [id number] / / [employer] Reline-O 8.5mm 50mm Polyaxial Spine 2s Screw Bone Nonsterile [id number] - [id number] Implanted:Qty: 1 on 02/17/2023 by Gustabo Lynne MD at [facility] N/A: Spine Lumbar [employer] [id number] / / [employer] Screw Bone Spinal Reline-O 7.0x50mm 2s Polyaxial [id number] - [id number] Implanted:Qty: 2 on 02/17/2023 by Gustabo Lynne MD at [facility] N/A: Spine Lumbar [employer] Inc [id number] / / Procedures Procedure Name Priority Date/Time Associated Diagnosis Comments POCT GLUCOSE DEVICE Routine 04/05/2025 10:40 AM CDT SURGICAL PATHOLOGY Routine 04/05/2025 9:27 AM CDT Hx of colonic polyps Gastroesophageal reflux disease, unspecified whether esophagitis present History of Burrows's esophagus NJ AN PROCEDURE PLACEHOLDER Routine 05/2025 9:25 AM CDT NJ AN ELECTIVE ENDOTRACHEAL AIRWAY Routine 04/05/2025 9:25 [...] Routine 04/05/2025 8:27 AM CDT SCREENING MAMMOGRAM ABBIE MACKEY Schedule Routine, Read Routine (OP Routine) 03/23/2025 [...] POCT ORDERABLES - DEVICE Final Result [facility] Department [place] [address] * Surgical pathology (04/05/2025 9:27 AM CDT) Tissue (Gastric/Stomach biopsy) 04/05/2025 9:27 AM CDT Tissue specimen (specimen) (Gastric/Stomach biopsy) 04/05/2025 9:29 AM CDT Tissue specimen (specimen) (Polyp(s), colon/colorectal, esophageal, gastric) 04/05/2025 9:30 AM CDT Tissue specimen (specimen) (Esophageal biopsy) 04/05/2025 9:33 AM CDT Narrative PATHOLOGY [facility] - 04/07/2025 2:26 PM CDT EPIC results best viewed via link to PDF [facility] Carolyn [facility] [place] [address] Note to Patients: This report may contain [...] Gender: F : 1965 (Age: 60) Address: [address] [place] [address] Hospital #: [id number] Taken:04/05/2025 Received:04/05/2025 Reported: 04/07/2025 Patient Type: [facility] Service: Gastro Location: Physician(s): Lona Arroyo Dr[address] [...] Surgical Pathology and Flow Cytometry Departments at [facility] as part of an ongoing quality manager program and in compliance with federally mandated [...] of analyte specific reagents require that the following disclaimer be attached to the report: This test was developed and its performance characteristics determined by the Surgical Pathology and Flow Cytometry Departments of [facility]. It has not been cleared or approved by the U. S. Food and Drug Administration. IMAGES AND SCANNED DOCUMENTS, IF INCLUDED, ONLY VIEWABLE IN PDF VERSION OF REPORT Jeronimo Pineda MD LAB PATHOLOGY ORDERABL ES Final Result PATHOLOGY [facility] 3rd Floor [place], [place] [phone] * NJ AN ELECTIVE ENDOTRACHEAL AIRWAY, NJ AN PROCEDURE PLACEHOLDER (04/05/2025 9:25 AM CDT) Sudheer Gann - 04/05/2025 9:25 AM CDT Sudheer Askew 04/05/2025 9:29 AM Airway Patient location: OR Urgency: elective Date/time: 04/05/2025 9:17 AM Indications for airway management: anesthesia Difficult airway: no Staff: Supervising provider: Tex Whitehead MD Placed by: Other staff: Sudheer Askew Emergent airway documentation: Risks and benefits discussed: yes Consent obtained: yes Consent given by: patient Airway prep: Preoxygenated: yes Patient position: sniffing Mask difficulty assessment: 1 - vent by mask Spontaneous ventilation during airway: absent Sedation level during airway: GA Final airway details: Final airway type: endotracheal airway Tube type: ETT ETT size: 7.5 mm Cuffed: yes Technique used for successful ETT placement: video laryngoscopy Devices/Methods used in placement: stylet Insertion site: oral Blade type: Alix Video blade type: Garrido Blade size: 3 Cormack-Lehane (video): grade IIa - partial view of glottis Cuff volume: 7 mL Cuff inflated with: air ETT to teeth: 22 cm Placement verified by: auscultation and CO2 detection Airway secured with: silk tape Number of attempts: 1 us Tex Whitehead MD ANESTHESIA ORDERABLES Final Result * EGD (04/05/2025 9:11 AM CDT) Anatomical Region Laterality Modality Other Narrative Procedure Note Jeronimo Pineda MD - 04/05/2025 9:11 AM CDT GI ENDOSCOPY [facility] Patient Name: Tessa Murphy Procedure Date: 04/05/2025 9:11 AM Date of : 1965 Admit Type: Outpatient Age: 60 Gender: Female Attending MD: Jeronimo Pineda M.D. Room: [facility] ENDOSCOPY ROOM 9 Note Status: Finalized Procedure: Upper GI endoscopy Indications: Surveillance procedure, Functional Dyspepsia, H/o Burrows's esophagus, and incomplete intestinal metaplasia (no stomach cancer in family) Referring MD: Wellington Medina M.D. Providers: Jeronimo Pineda M.D. Medicines: General Anesthesia Complications: No immediate complications. Estimated Blood Loss: Estimated blood loss: none. Procedure: Pre-Anesthesia Assessment: - Prior to the procedure, a History and Physicalwas performed, and patient medications, allergies and sensitivities were reviewed. The patient'stolerance of previous anesthesia was reviewed. - The risks and benefits of the procedure and the sedation options and risks were discussed with the patient. All questions were answered and informed consent was obtained. - Immediately prior to administration ofmedications, the patient was re-assessed for adequacy to receive sedatives. The benefits, risks, and alternatives to theprocedure and sedation were discussed and informed consentwas obtained. The upper GI endoscopy was accomplished without difficulty. The patient tolerated the procedure well. The scope was passed under direct vision. The GIF [id number] endoscope was introduced through the mouth, and advanced to the second part of duodenum. Findings: The upper third of the esophagus and middle third of the esophaguswere normal. There were esophageal mucosal changes secondary to established short-segment Burrows's disease, classified as Burrows's stage C0-M1per New Raymer criteria present in the distal esophagus. The maximum longitudinal extent of these mucosal changes was 1 cm in length.Mucosa was biopsied with a cold forceps for histology in 4 quadrants at intervals of 1 cm. One specimen bottle was sent to pathology. The pathology specimen was placed into Bottle D. The esophagus and gastroesophageal junction were examined with white light and narrow band imaging (NBI) from a forward view andretroflexed position. A medium-sized hiatal hernia was present. Measuring 3cm The gastroesophageal flap valve was visualized endoscopically and classified as Hill Grade IV (no fold, wide open lumen, hiatal hernia present). Multiple 2 to 3 mm sessile polyps with no bleeding and no stigmata of recent bleeding were found in the gastric body. The polyp was removed with a cold snare, 2 polyps removed. Resection and retrieval were complete. The pathology specimen was placed into Bottle C. The entire examined stomach was normal. Biopsies obatained usingdney protocol, antrum and incisura (Bottle A) and body Bottle B. The duodenal bulb and second portion of the duodenum were normal. Impression: - Normal upper third of esophagus and middle thirdof esophagus. - Esophageal mucosal changes secondary toestablished short-segment Burrows's disease, classified as Burrows's stage C0-M1 per New Raymer criteria.Biopsied. - Medium-sized hiatal hernia. - Gastroesophageal flap valve classified as HillGrade IV (no fold, wide open lumen, hiatal herniapresent). - Multiple gastric polyps. Resected andretrieved. - Normal stomach. - Normal duodenal bulb and second portion of the duodenum. Recommendation: - Continue present medications. -FU Path -Proceed with colonoscopy Attending Participation: I personally performed the entire procedure. Electronically signed by Jeronimo Pineda MD Jeronimo Pineda M.D. 04/05/2025 10:11:17 AM . Number of Addenda: 0 Note Initiated On: 04/05/2025 9:11 AM us Jeronimo Pineda MD ENDOSCOPY PROCEDURES F inal Result * Colonoscopy (04/05/2025 9:09 AM CDT) Anatom [id number]|2025-04-13 16:04:00|2025-04-13 16:04:00|XMS_ITS|[facility]|External Medical Summaries|[id number]|" Encounter Summary Created on: April 13, 2025 Lisbeth Price : 10/11/1975 Sex: Female Author Organization [facility] Health Address [address] [place] [address] Care Team Providers Care Pulp Piler Name Role Phone Kiran Burton MD Primary Care Provider [phone] Encounter Details Date Type Department Care Team (Late st Contact Info) Description 01/27/2024 Lab Requisition [facility] - DermPath Lab [address] [place] [address] Wellington Pozo MD [address] [place] [address] Social History Tobacco Use Types Packs/Day Years Used Date Smoking Tobacco: Never Assessed Comments Unknown Sex and Gender Information Value Date Recorded Sex Assigned at Female 05/11/2024 2:39 PM CDT Legal Sex Female 5:47 PM EXTENSION AGENT Gender Identity Female 05/11/2024 2:39 PM CDT Sexual Orientation Straight 05/11/2024 2: 39 PM CDT documented as of this encounter Plan of Treatment Not on file documented as of this encounter Procedures Procedure Name Priority Date/Time Associated Diagnosis Comments DERMATOPATHOLOGY Routine 01/26/2024 12:0 0 AM EXTENSION AGENT documented in this encounter Results * DERMATOPATHOLOGY (01/26/2024 12:00 AM EXTENSION AGENT) Case Report Dermatopathology Report Case: [id number] Authorizing Provider: Wellington Pozo MD Collected: 01/26/2024 12:00 AM Ordering Location: [facility] DermPath Lab Received: 01/28/2024 06:56 AM Pathologist: Summer Pickett MD Specimens: A) - Skin, dorsal right radial hand B) - Skin, right medial breast C) - Skin, right anteromedial calf D) - Skin, right upper ant arm 12:18 PM EXTENSION AGENT DERMATOPATHOLOGY LABORATORY Final Diagnosis Specimen A. SKIN, dorsal right radial hand: SQUAMOUS CELL CARCINOMA IN SITU (TEAGUE'S DISEASE) (D04.61) ARISING IN A BACKGROUND ACTINIC KERATOSIS (L57.0) Specimen B. SKIN, right medial breast: BASAL CELL CARCINOMA, SUPERFICIAL MULTIFOCAL (C44.511) Specimen C. SKIN, right anteromedial calf: DERMATOFIBROMA (D23.9) Specimen D. SKIN, right upper ant arm: BASAL CELL CARCINOMA, SUPERFICIAL MULTIFOCAL (C44.612) 4 12:18 PM [facility] DERMATOPATHOLOGY LABORATORY Clinical History A-D: R/O SCC vs BCC 4 12:18 PM [facility] DERMATOPATHOLOGY LABORATORY Gross Description Specimen A: Received is one formalin filled container labeled with the patient's name and designated dorsal right radial hand. The specimen consists of a shave biopsy measuring 11x9x1 mm. Jar 0. Specimen B: Received is one formalin filled container labeled with the patient's name and designated right medial breast. The specimen consists of a shave biopsy measuring 9x9x1 mm. Jar 0. Specimen C: Received is one formalin filled container labeled with the patient's name and designated right anteromedial calf. The specimen consists of a shave biopsy measuring 8x8x1 mm. Jar 0. Specimen D: Received is one formalin filled container labeled with the patient's name and designated right upper ant arm. The specimen consists of a shave biopsy measuring 8x7x1 mm. Jar 0. 4 12:18 PM [facility] DERMATOPATHOLOGY LABORATORY Microscopic Description Specimen A. SKIN, dorsal right radial hand: Sections show areas in which atypical keratinocytes are present within the epidermis in two different patterns. In one area, atypical keratinocytes replace most of the thickness of the epidermis and there are broad rete ridges and overlying parakeratosis. In other areas, there are atypical keratinocytes in the lower epidermis with partial maturation. There is solar elastosis. Specimen B. SKIN, right medial breast: Attached to the undersurface of the epidermis, there are small aggregates of basaloid cells with a high nuclear to cytoplasmic ratio and peripheral palisading. Specimen C. SKIN, right anteromedial calf: There is epidermal hyperplasia. Within the dermis, there are fibrohistiocytic cells in haphazard array among coarse collagen bundles. Specimen D. SKIN, right upper ant arm: Attached to the undersurface of the epidermis, there are small aggregates of basaloid cells with a high nuclear to cytoplasmic ratio and peripheral palisading. 4 12:18 PM EXTENSION AGENT DERMATOPATHOLOGY LABORATORY Disclaimer An external and internal positive and negative controls are appropriate for the histochemical, immunohistochemical and immunofluorescence stain(s) in this case (if any), except where stated explicitly. The performance characteristics of the stain(s) cited in this report were developed and its performance characteristic determined by the Dermatopathology Laboratory at [facility], directed by Dr. Arlene Monk. These tests need not be, and therefore are not, approved by the [place] Food and Drug Administration. The tests are used for clinical purposes. Billing Codes Specimen Charges Stain Charges 32535 67556 [id number] 1 1 1 1 4 12:18 PM EXTENSION AGENT DERMATOPATHOLOGY LABORATORY Embedded Images 4 12:18 PM EXTENSION AGENT DERMATOPATHOLOGY LABORATORY Pathology/Cytology TISSUE SPECIMEN FROM SKIN / Unknown 01/26/2024 01/28/2024 6:56 AM EXTENSION AGENT Miscellaneous samples (specimen) TISSUE SPECIMEN FROM SKIN / Unknown 01/26/2024 01/28/2024 6:56 AM EXTENSION AGENT Miscellaneous samples (specimen) TISSUE SPECIMEN FROM SKIN / Unknown 01/26/2024 01/28/2024 6:56 AM EXTENSION AGENT Miscellaneous samples (specimen) TISSUE SPECIMEN FROM SKIN / Unknown 01/26/2024 01/28/2024 6:56 AM EXTENSION AGENT Wellington Pozo MD LAB - PATHOLOGY/CYTOLOGY ORD ERABLES Final Result DERMATOPATHOLOGY LABORATORY [facility] - Department of Dermatology [facility] [address] [place] [address], [address]rd [place] [address], [facility] [phone] documented in this encounter Visit Diagnoses Not on filedocumented in this encounter Care Teams Pulp Piler Relationship Specialty Start Date End Date Kiran Burton MD [address] [place] [address] PCP - General 04/13/09 documented as of this encounter "
--- OUTSIDE RECORDS SUMMARY | 2025-04-13 16:04 | XMS_ITS ---
Author Organization [employer] [facility] Address [address] [place] [address] Care Team Providers Care Warehouse Packer Name Role Phone Angela Momin Primary Care Provider Encounters Encounter Location Date Provider Diagnosis [facility] - Angela Momin [address] [place] [address] 08/18/2024 Angela Momin Plan Of Treatment No Information Progress Notes * JEFFREYCATERINA MerchantSATYAB:1965 ([age] yo F)Acc No.[id number]:08/18/2024 Progress Notes Patient: KERI SINGH Provider: Seamus Momin MD :1965 A ge:59 Y S ex:Female Date:08/18/2024 Phone: Address:[address] [facility] Subjective: * Chief Complaints: * * Medical History: Objective: * Vitals: Assessment: Plan: * Treatment: * Billing Information: * Visit Code: * Procedure Codes: * Electronic signature of Vinny Momin MD on 04/13/2025 at 04:03 PM CDT Sign off status: Pending * Provider: Seamus Momin MD Date: 08/18/2024 Generated for Annelisei ng/Fakushalg/eTransmitting on: 04/13/2025 04:03 PM CDT
--- OUTSIDE RECORDS SUMMARY | 2025-04-13 16:04 | XMS_ITS | Encounter Summary ---
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 Gender Identity Not on file Sexual Orientation Not on file 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
--- OUTSIDE RECORDS SUMMARY | 2025-04-13 16:04 | XMS_ITS ---
Author Organization [employer] [facility] Address [address] [place] [address] Care Team Providers Care Experimental Technician Name Role Phone Angela Momin Primary Care Provider [phone] JAMAL TAYLOR [phone] REASON FOR VISIT Needs new Gynocologist Encounters Encounter Location Date Provider Diagnosis [facility] [address] [place] [address] 08/18/2024 JAMAL TAYLOR Plan Of Treatment No Information Progress Notes * CATERINA MURPHYSATYAB:1965 ([age] yo F)Acc No.[id number]:08/18/2024 Progress Notes Patient: KERI SINGH Provider: Chip TAYLOR MD :1965 A ge:59 Y S ex:Female Date:08/18/2024 Phone: [address] [facility] [facility] Pcp:Angela Momin Subjective: * Chief Complaints: * 1 . Needs new Gynocologist. * Medical History: Objective: * Vitals: Assessment: Plan: * Treatment: * Billing Information: * Visit Code: * Procedure Codes: * Electronic signature of EMELY TAYLOR MD on 04/13/2025 at 04:04 PM CDT Sign off status: Pending * Provider: Chip TAYLOR MD Date: 08/18/2024 Generated for Sultana weaver/Giuseppe/eTjarrodsmitting on: 04/13/2025 04:04 PM CDT
[2025-04-17 13:25] LABS: Intrinsic Factor Blocking Ab NEGATIVE
[2025-04-19 02:23] LABS: Gastrin 70 pg/mL (< OR = 100)
== END 2025-04-13 15:51 | disposition home or self-care (01) ==
DX: D3A.8 Other benign neuroendocrine tumors (principal)
CPT/HCPCS: 36415; 82941; 86340; 86364

== ENCOUNTER 2025-05-05 16:25 | Outpatient (CLI) | payer BC, SELFPAY ==
--- OUTSIDE RECORDS SUMMARY | 2025-05-05 16:32 | XMS_ITS ---
Author Organization [facility] Address [address] [place] [address] Care Team Providers Care Apartment Property Manager Name Role Phone Angela Momin Primary Care Provider JAMAL TAYLOR [phone] REASON FOR VISIT Needs new Gynocologist Encounters Encounter Location Date Provider Diagnosis [facility] [address] [place] [address] 08/18/2024 JAMAL TAYLOR Plan Of Treatment No Information Progress Notes * CATERINA MURPHYSATYAB:1965 ([age] yo F)Acc No.[id number]:08/18/2024 Progress Notes Patient: KERI SINGH Provider: Chip TAYLOR MD :1965 A ge:59 Y S ex:Female Date:08/18/2024 Phone: [address] [facility] [facility] Pcp:Angela Momin Subjective: * Chief Complaints: * 1 . Needs new Gynocologist. * Medical History: Objective: * Vitals: Assessment: Plan: * Treatment: * Billing Information: * Visit Code: * Procedure Codes: * Electronic signature of EMELY TAYLOR MD on 05/05/2025 at 04:32 PM CDT Sign off status: Pending * Provider: Chip TAYLOR MD Date: 08/18/2024 Generated for Sultana weaver/Giuseppe/eTransmitting on: 05/05/2025 04:32 PM CDT
--- OUTSIDE RECORDS SUMMARY | 2025-05-05 16:32 | XMS_ITS | Encounter Summary ---
Author Organization [facility] Address [address] [place] [address] Phone Care Team Providers Care Rehabilitation Director Name Role Phone Wellington Medina MD Primary Care Provider [phone] Encounter Details Date Type Department Care Team (Late st Contact Info) Description 04/08/2025 Results Follow-Up [facility] Gastroenterology [address] [place] [address] Medical Office Building [address], [address] [place] [address] Jeronimo Pineda MD [address] [place] [address] Surgical pathology Social History Tobacco Use Types Packs/Day Years [...] on file Legal Sex 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 [address] [place] [address] PCP - General 02/27/17 documented as of this encounter
--- OUTSIDE RECORDS SUMMARY | 2025-05-05 16:32 | XMS_ITS | Encounter Summary ---
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 Gender Identity Not on file Sexual Orientation Not on file 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
--- OUTSIDE RECORDS SUMMARY | 2025-05-05 16:32 | XMS_ITS ---
Author Organization [facility] Address [address] [address] Care Team Providers Care Numerical Control Tool Programmer Name Role Phone Angela Momin Primary Care Provider [phone] Migration, Provider Unavailable Unavailable REASON FOR VISIT [...] Active Encounters Encounter Location Date Provider Diagnosis [facility] [address] [place] [address] 10/15/2024 Provider Migration Type 2 diabetes mellitus [...] 08/05/2024 Progress Notes * JEFFREY, CATERINAIDOB:1965 ([age] yo F)Acc No.[id number]:10/15/2024 Patient: KERI SINGH Provider: Barrett Lopez :1965 A ge:59 Y S ex:Female Date:10/15/2024 Phone: Address:[address] [place], [place] [address] Pcp:Angela Momin Subjective: * Chief Complaints: * 1 . [facility] Conversion Encounter. [...] Electronic signature of Prov ider Migration on 05/05/2025 at 11:25 AM CDT Sign off status: Pending * Provider: Barrett Lopez Date: 12/15/2023 Generated for Sultana weaver/Giuseppe/eTransmitting on: 05/05/2025 11:25 AM CDT
--- OUTSIDE RECORDS SUMMARY | 2025-05-05 16:32 | XMS_ITS | Patient Health Record ---
Author Organization [facility] Address [address] [address] Care Team Providers Care Furrier Apprentice Name Role Phone Angela Momin Primary Care Provider [phone] [facility] Unavailable [phone] Migration, Provider Unavailable Unavailable Reason For Referral [...] Status Risk Notes Problem Vitamin D deficiency (75235230) Vitamin D deficiency, unspecified (E55.9) Active confirmed Problem Hyperglycemia due to type 2 diabetes mellitus (412258545943926) Type 2 diabetes mellitus with hyperglycemia (E11.65) Active confirmed Problem Hyperlipidemia (80117238) Hyperlipidemia, unspecified (E78.5) Active confirmed Vital Signs Heart Rate 94 /min 07/21/2024 Blood pressure diastolic 80 mm Hg 07/21/2024 Height 66 in 07/21/2024 Blood pressure systolic 137 mm Hg 07/21/2024 Weight 187.0 lbs 07/21/2024 BMI 30.18 kg/m2 07/21/2024 Encounters Encounter Location Date Provider Diagnosis [address] [place] [address] 10/15/2024 Provider Migration Type 2 diabetes mellitus with hyperglycemia E11.65 [facility] - Angela [address] [place] [address] 07/21/2024 Angela Momin Type 2 diabetes mellitus with hyperglycemia E11.65 ; Hyperlipidemia, unspecified E78.5 ; Other fatigue R53.83 and Vitamin D deficiency, unspecified E55.9 [facility] [address] [place] [address] 07/21/2024 Angela [facility] [address] [place] [address] 07/27/2024 [facility] - Angela [address] [address] [place] [address] 07/28/2024 Angela [employer] [facility] - Agnela [address] [address] [place] [address] 08/02/2024 Angela Momin [facility] [address] [place] [address] 08/03/2024 Angela Momin [employer] [facility] - Angela [address] [address] [place] [address] 08/05/2024 Angela Momin Type 2 diabetes mellitus [...] food labels. Recommended patient to utilize the diabetesfoodhub.iSyndica from the ADA website to help with [...] duration of effect and decreased frequency of transportation director hypoglycemia. Start at 20 units once daily [...] based snack at bedtime to help reduce transportation director hyperglcemia from counterregulatory hormones. She has no [...] potential hospitalizations. freestyle terry 3 plus Lot [id number] 12/30/2024 07/21/2024 Hyperlipidemia, unspecified (ICD-10 - E78.5) [...] procedures, referring and communicating with other health wound care nurse, documenting clinical information in the electronic [...] Insured Coverage Start Date Coverage End Date [facility] [address] [place] [address] [id number] KERI MURPHY Self - patient is the insured Medical (General) History Surgical History Surgery Date(Month/Year) Hiatal Hernia spinal surgery 01/2023
--- OUTSIDE RECORDS SUMMARY | 2025-05-05 16:32 | XMS_ITS | Encounter Summary ---
Author Organization 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 Gender Identity Not on file Sexual Orientation Not on file 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
--- OUTSIDE RECORDS SUMMARY | 2025-05-05 16:32 | XMS_ITS | Encounter Summary ---
Author Organization [facility] Address [address] [place] [address] Phone Care Team Providers Care Yardage Control Clerk Name Role Phone Wellington Medina MD Primary Care Provider Reason for Visit * Reason Onset Date Comments Test Results 04/19/2025 Encounter Details Date Type Department Care Team (Late st Contact Info) Description 04/19/2025 Telephone [facility] Gastroenterology [address] [place] [address] Medical Office [address], [address] [place] [address] Amelia Villagomez RN Test Results Social History Tobacco Use Types Packs/Day Years [...] on file Legal 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 LVM with Pt that she will need to return to lab to have blood drawn for parietal lab. * Telephone Encounter - Amelia Villagomez RN - 05/05/2025 11:57 AM CDT Spoke to [facility], they never received the order for parietal cell antibody IgG. * Telephone Encounter - Amelia Villagomez RN - 04/27/2025 3:27 PM CDT Images from the original note were not included. Spoke to Pt, made aware of MD reccs. Will continue to follow due to waiting on last lab result. * Telephone Encounter - Amelia Villagomez RN - 04/26/2025 12:13 PM CDT Spoke to Shelby warren, parietal cell antibody was completed and sent out but no results as of today. air launch weapons technician is unaware of return on results and unable to provide a phone number to follow up on results. * Telephone Encounter - Amelia Villagomez RN - 04/26/2025 11:53 AM CDT Results and Reqs reviewed with Pt, Pt verbalized understanding and had no questions. Pt had a question related to symptoms- she continues with bloating/gas all the time and a metallic taste in her mouth. Reports vomiting at times and painful after vomiting. She is wondering if this could be related to her ozempic and does she need to see a surgeon about the hiatal hernia? * Telephone Encounter - Amelia Villagomez RN - 04/19/2025 3:46 PM CDT Images from the original note were not included. documented in this encounter Plan of Treatment Scheduled Procedures [...] on filedocumented in this encounter Care Teams Yardage Control Clerk Relationship Specialty Start Date End Date Wellington Medina MD [address] [place] [address] [address] [place] [address] PCP - General 02/27/17 documented as of this encounter
--- OUTSIDE RECORDS SUMMARY | 2025-05-05 16:32 | XMS_ITS ---
Author Organization [employer] [facility] Address [address] [place] [address] Care Team Providers Care Ceramic Capacitor Processor Name Role Phone Angela Momin Primary Care Provider Encounters Encounter Location Date Provider Diagnosis [facility] - Angela Momin [address] [place] [address] 08/18/2024 Angela Momin Plan Of Treatment No Information Progress Notes * JFEFREYCATERINA MerchantSATYAB:1965 ([age] yo F)Acc No.[id number]:08/18/2024 Progress Notes Patient: KERI SINGH Provider: Seamus Momin MD :1965 A ge:59 Y S ex:Female Date:08/18/2024 Phone: Address[address] [facility] Subjective: * Chief Complaints: * * Medical History: Objective: * Vitals: Assessment: Plan: * Treatment: * Billing Information: * Visit Code: * Procedure Codes: * Electronic signature of Vinny Momin MD on 05/05/2025 at 04:32 PM CDT Sign off status: Pending * Provider: Seamus Momin MD Date: 08/18/2024 Generated for Annelisei ng/Fakushalg/eTransmitting on: 05/05/2025 04:32 PM CDT
--- OUTSIDE RECORDS SUMMARY | 2025-05-05 16:33 | XMS_ITS | Referral Summary ---
Author Organization [facility] HealthCare Care Team Providers Care Washer Repairman Name Role Phone Wellington Medina MD Primary Care Provider [phone] Encounters Date Type Department Care Team Description 04/19/2025 Telephone [facility] Gastroenterology [address] [place] [address] Medical Office Building [address], [address] [place] [address] Amelia Villagomez RN Test Results 04/18/2025 Telephone [facility] Medical Group at [address] [place] [address] Wellington Medina MD Medical Question/Miscellaneous 04/13/2025 Orders Only [facility] Scanning, Provider 04/08/2025 Results Follow-Up [facility] Gastroenterology [address] [place] [address] Medical Office Building [address], [address] [place] [address] Jeronimo Pineda MD Surgical pathology 04/05/2025 9:00 AM CDT - 04/05/2025 10:00 AM CDT Surgery [facility] [address] [place] [address] Jeronimo Pineda MD COLONOSCOPY 04/05/2025 9:11 AM CDT Anesthesia Event [facility] [address] [place] [address] Tex Whitehead MD Barker, Anthony 04/05/2025 8:14 AM CDT - 04/05/2025 11:18 AM CDT Hospital Encounter [facility] [address] [facility] [place] [facility] [address] [place] [address] Jeronimo Pineda MD Hx of colonic polyps; Gastroesophageal reflux disease, unspecified whether esophagitis present; History of Burrows's esophagus Discharge Disposition: Discharge to home or self care 04/03/2025 Telephone [facility] Gastroenterology [facility] Medical Office Building [address], [address] [place] [address] Amelia Villagomez, CABRERA Pt returned call after msg left by OA schedulers 03/31/2025 Telephone [facility] Specialty Services [address] [place] [phone] Pearl Hudson RN GI Preprocedure 03/29/2025 Telephone [facility] Specialty Services [address] [place] [phone] Pearl Hudson RN GI Preprocedure 03/23/2025 2:50 PM CDT - 03/23/2025 11:59 PM CDT Hospital Encounter [facility] Advanced Medicine Breast Imaging [facility] ([facility]) [address] [place] [address] Screening mammogram, encounter for Discharge Disposition: Discharge to home or self care 03/16/2025 Telephone [facility] Gastroenterology [address] [place] [address] Advanced Medicine 12th [place] [address] [place] [phone] Sondra Starr gi pre procedure assessment 03/15/2025 Telephone [facility] Specialty Services [address] [place] [phone] Lupe Phan RN 03/15/2025 Telephone [facility] Gastroenterology [address] [place] [address] 12th [place] [address] [place] [phone] Nati Hernandez LPN 03/14/2025 Orders Only [facility] Medical Group at the [address] [place] [phone] Wellington Medina MD Gastroesophageal reflux disease, unspecified whether esophagitis present (Primary Dx) 03/14/2025 Telephone [facility] Medical Group at the [address] [phone] Wellington Medina MD Medical Question/Miscellaneous 03/14/2025 Telephone [facility] Gastroenterology [address] [facility] 12th [place] [address] [place] [address] Nati Hernandez LPN 03/13/2025 Orders Only [facility] Medical Group at the [address] [phone] Wellington Medina MD 03/13/2025 Telephone [facility] Medical Group at the [address] [phone] Wellington Medina MD Symptom Based Call 02/24/2025 Telephone [facility] Medical Group at the [address] [phone] Wellington Medina MD 02/22/2025 Telephone [facility] Specialty Services [address] [place] [address] Lupe Phan RN 02/18/2025 Results Follow-Up [facility] Medical Group at the [address] [phone] Wellington Medina MD Albumin Creatinine Ratio, Urine, CBC with auto differential, Hemoglobin A1c, Additional followed-up results: 5 02/16/2025 11:12 AM CDT - 02/16/2025 11:59 PM CDT Hospital Encounter [facility] [address] [place] [address] Discharge Disposition: Discharge to home or self care 02/16/2025 Telephone [facility] Medical Group at the [address] [phone] Wellington Medina MD Authorization/Certific ation 02/16/2025 Orders Only [facility] at the [address] [phone] Wellington Medina MD Type 2 diabetes mellitus with hyperglycemia, without long-term current use of insulin (HCC); Benign essential hypertension; Hyperlipidemia associated with type 2 diabetes mellitus (HCC) 02/16/2025 9:15 AM CDT Office Visit [facility] Medical Group at the [address] [place] [phone] Wellington Medina MD Hyperlipidemia associated with type 2 diabetes mellitus (HCC) (Primary Dx); Type 2 diabetes mellitus with hyperglycemia, without long-term current use of insulin (HCC); Benign essential hypertension; History of colonic polyps; Need for vaccination; Screening mammogram, encounter for; Moderate episode of recurrent major depressive disorder (HCC) 02/08/2025 Telephone [facility] Medical Group at the [address] [place] [phone] Wellington Medina MD from Last 3 Months [...] every 7 days 3 mL 5 Active Active Problems Problem Noted Date Diagnosed Date Hx of colonic polyps 03/16/2025 History of Burrows's esophagus 03/16/2025 History of colonic polyps 07/27/2024 Assessment & Plan (07/28/2024 10:06 PM CDT): Ordered screening colonoscopy. S/P lumbar fusion 02/17/2023 Synovial cyst 09/26/2022 Overview (09/26/2022): Added automatically from request for surgery [id number] Spinal stenosis of lumbar region with radiculopa thy 09/26/2022 Overview (09/26/2022): Added automatically from request for surgery [id number] Assessment & Plan (01/15/2023 5:24 PM TELEVISION NEWSCAST DIRECTOR): Lumbar spine surgery scheduled. Assessment & Plan (10/05/2022 7:59 PM TELEVISION NEWSCAST DIRECTOR): Spinal surgery onhold until patient's glycemic control improves. Primary insomnia 03/11/2021 Burrows's esophagus 08/14/2020 Overview (08/14/2020): Added automatically from request for surgery [id number] Assessment & Plan (07/28/2024 10:06 PM CDT): [...] 7.5%. Assessment & Plan (01/15/2023 5:23 PM TELEVISION NEWSCAST DIRECTOR): Much improved glycemic control with last Hb A1c of 7.1%. Continue current diet, Ozempic and metformin. Patient encouraged to update eye exam Assessment & Plan (10/05/2022 7:59 PM TELEVISION NEWSCAST DIRECTOR): Poorly controlled type 2 DM. Target Hb [...] lisinopril. Assessment & Plan (10/05/2022 7:58 PM TELEVISION NEWSCAST DIRECTOR): Target BP <140/90. Continue current diet and [...] paroxetine. Assessment & Plan (01/15/2023 5:23 PM TELEVISION NEWSCAST DIRECTOR): Mood stable on paroxetine. Assessment & Plan (08/29/2022 12:01 PM CDT): Mood stable on paroxetine. Migraine with aura 06/13/2014 Overview (03/06/2017): [facility]IG[facility] WO [facility] MGRN Panic disorder 04/15/2014 Overview (03/04/2017): [...] rosuvastatin. Assessment & Plan (01/15/2023 5:23 PM TELEVISION NEWSCAST DIRECTOR): Target LDL less than 100. Continue current diet and rosuvastatin. Assessment & Plan (10/05/2022 7:57 PM TELEVISION NEWSCAST DIRECTOR): Target LDL less than 100. 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 on file Not [...] 8:28 AM CDT Height 165.1 cm (5' 5) 04/05/2025 8:28 AM CDT Body Mass Index [...] colon cancer Medical Devices Implanted Type Area Toe Puncher Device Identifier Shelf Expiration Date Model / Serial / Lot Allosource Canpac Allograft Frozen Nonpurge Graft 10cc Bone Cancellous [id number] - [id number] Implanted:Qty: 1 on 02/17/2023 by Gustabo Lynne MD at [facility] N/A: Spine Lumbar Allosource 10/19/2027 [id number] / / [id number] Nuv[employer] Reline 5.5mm Lock Open Tulip Spine Screw Bone Nonsterile [id number] - [id number] Implanted:Qty: 4 on 02/17/2023 by Gustabo Lynne MD at [facility] N/A: Spine Lumbar [employer] [id number] / / [employer] Reline-O 7.5mm 45mm Polyaxial Spine 2s Screw Bone Nonsterile [id number] - [id number] Implanted:Qty: 1 on 02/17/2023 by Gustabo Lynne MD at [facility] N/A: Spine Lumbar [employer] [id number] / / [employer]. Reline-O 5.5mm 35mm Lordotic Bruno Spinal Titanium Nonsterile [id number] - [id number] Implanted:Qty: 1 on 02/17/2023 by Gustabo Lynne MD at [facility] N/A: Spine Lumbar [employer]. [id number] / / [employer]. Reline-O 5.5mm 40mm Lordotic Bruno Spinal Titanium Nonsterile [id number] - [id number] Implanted:Qty: 1 on 02/17/2023 by Gustabo Lynne MD at [facility] N/A: Spine Lumbar [employer]. [id number] / / [employer] Reline-O 8.5mm 50mm Polyaxial Spine 2s Screw Bone Nonsterile [id number] - [id number] Implanted:Qty: 1 on 02/17/2023 by Gustabo Lynne MD at [facility] N/A: Spine Lumbar [employer] [id number] / / [employer] Screw Bone Spinal Reline-O 7.0x50mm 2s Polyaxial [id number] - [id number] Implanted:Qty: 2 on 02/17/2023 by Gustabo Lynne MD at [facility] N/A: Spine Lumbar [employer] Inc [id number] / / Procedures Procedure Name Priority Date/Time Associated Diagnosis Comments SCAN - LABS 04/13/2025 POCT GLUCOSE DEVICE Routine 04/05/2025 10:40 AM CDT SURGICAL PATHOLOGY Routine 04/05/2025 9:27 AM CDT Hx of colonic polyps Gastroesophageal reflux disease, unspecified whether esophagitis present History of Burrows's esophagus GA AN PROCEDURE PLACEHOLDER Routine 05/2025 9:25 AM CDT GA AN ELECTIVE ENDOTRACHEAL AIRWAY Routine 04/05/2025 9:25 [...] AM CDT SCREENING MAMMOGRAM BILATERA L W GAGE Schedule Routine, Read Routine (OP Routine) 03/23/2025 [...] (HCC) from Last 3 Months Results * SCAN - LABS (04/13/2025) us Provider Scanning Final Result * POCT glucose (04/05/2025 10:40 AM CDT) Glucose, POC 143 70 - 199 mg/dL Blood 04/05/2025 10:4 0 AM CDT 04/05/2025 10:40 AM CDT Jeronimo Pineda MD LAB POCT ORDERABLES - DEVICE Final Result [facility] Department [place] [address] * Surgical pathology (04/05/2025 9:27 AM CDT) Tissue (Gastric/Stomach biopsy) 04/05/2025 9:27 AM CDT Tissue specimen (specimen) (Gastric/Stomach biopsy) 04/05/2025 9:29 AM CDT Tissue specimen (specimen) (Polyp(s), colon/colorectal, esophageal, gastric) 04/05/2025 9:30 AM CDT Tissue specimen (specimen) (Esophageal biopsy) 04/05/2025 9:33 AM CDT Narrative PATHOLOGY [facility] - 04/07/2025 2:26 PM CDT EPIC results best viewed via link to PDF [facility] [place] [address] Note to Patients: This report may contain [...] Gender: F : 1965 (Age: 60) Address: [address] [place] [address] Hospital #: [id number] Taken:04/05/2025 Received:04/05/2025 Reported: 04/07/2025 Patient Type: [facility] Service: Gastro Location: Physician(s): Jeronimo Pineda M.D. Dr. Wellington Medina M.D. Diagnosis: A. Stomach, antrum, biopsy - [...] - Negative for intestinal metaplasia or dysplasia gp/04/06/2025 11:40 By this signature, I attest that [...] Surgical Pathology and Flow Cytometry Departments at [facility] as part of an ongoing supervisor quality control program and in compliance with federally mandated [...] Surgical Pathology and Flow Cytometry Departments of [facility]. It has not been cleared or approved by the U. S. Food and Drug Administration. IMAGES AND SCANNED DOCUMENTS, IF INCLUDED, ONLY VIEWABLE IN PDF VERSION OF REPORT us Jeronimo Pineda MD LAB PATHOLOGY ORDERABL ES Final Result PATHOLOGY [facility] 3rd Floor [place], [place] [phone] * GA AN ELECTIVE ENDOTRACHEAL AIRWAY, GA AN PROCEDURE PLACEHOLDER (04/05/2025 9:25 AM CDT) [...] Female Attending MD: Jeronimo Pineda M.D. Room: [facility] ENDOSCOPY ROOM 9 Note Status: Finalized Procedure: [...] passed under direct vision. The GIF [id number] endoscope was introduced through the mouth, and advanced to the second part of duodenum. Findings: The upper third of the esophagus and middle third of the esophaguswere normal. There were esophageal mucosal changes secondary to established short-segment Burrows's disease, classified as Burrows's stage C0-M1per [place] criteria present in the distal esophagus. The [...] entire examined stomach was normal. Biopsies obatained usingSydney protocol, antrum and incisura (Bottle A) and body Bottle B. The duodenal bulb and second portion of the duodenum were normal. Impression: - Normal upper third of esophagus and middle thirdof esophagus. - Esophageal mucosal changes secondary toestablished short-segment Burrows's disease, classified as Burrows's stage C0-M1 per [place] criteria.Biopsied. - Medium-sized hiatal hernia. - Gastroesophageal [...] Result * Colonoscopy (04/05/2025 9:09 AM CDT) Anatomical Region Laterality Modality Other Narrative Procedure Note Jeronimo Pineda MD - 04/05/2025 9:09 AM CDT GI ENDOSCOPY [facility] Patient Name: Tessa Murphy Procedure Date: 04/05/2025 9:09 AM Date of : 1965 Admit Type: Outpatient Age: 60 Gender: Female Attending MD: Jeronimo Pineda M.D. Room: [facility] ENDOSCOPY ROOM 9 Note Status: Finalized Procedure: Colonoscopy Indications: High risk colon cancer surveillance: Personalhistory of colonic polyps Referring MD: Wellington Medina M.D. Providers: Jeronimo [...] sedation were discussed and informed consentwas obtained. All questions were answered. Please referto the signed informed consent document in the medical record. The colonoscopy was performed without difficulty. The patient tolerated the procedurewell. The quality of the bowel preparation was adequate.The quality of the bowel preparation was evaluatedusing the BBPS ([place] Bowel Preparation Scale) withscores of: Right Colon = 2 (minor amount of residual staining, small fragments of stool and/or opaque liquid, but mucosa seen well), Transverse Colon = 2 (minor amount of residual staining, small fragmentsof stool and/or opaque liquid, but mucosa seen well)and Left Colon = 2 (minor amount of residual staining, small fragments of stool and/or opaque liquid, but mucosa seen well). The total BBPS score equals 6.The quality of the bowel preparation was fair.Extensive washing and suction required to obtain fair prep.The bowel preparation used was GoLYTELY via split dose instruction. The scope was passed under directvision. The [id number] endoscope was introduced through the anus and advanced to the cecum,identified by appendiceal orifice and ileocecal valve. Rightside was examined twice on withdrawal. Extreme diligence was made to ensure examination behind the foldusing good withdraw technique with adequate insufflationand washing of the debris. Bowel prep was administered using a split dose. Findings: The perianal and digital rectal examinations were normal. A few small-mouthed diverticula were found in the descending colonand transverse colon. The exam was otherwise without abnormality. No additional abnormalities were found on retroflexion. Impression: - Preparation of the colon was fair. - Diverticulosis in the descending colon and in the transverse colon. - The examination was otherwise normal. - No specimens collected. Recommendation: - -Observe pt in recovery. - Discharge patient to home when stable. - Patient has a contact number available for emergencies. The signs and symptoms of potential delayed complications were discussed with thepatient. Return to normal activities tomorrow. Written discharge instructions were provided to thepatient. - Resume previous diet. - Continue present medications. - Await pathology results from EGD report. - The findings and recommendations were discussedwith the patient. -In the unusual situation that you developabdominal pain, bleeding or other significant problems in the days following this procedure please call Naomi Hamilton [phone]. After hours and evenings please call [phone] speak to the GI fellow framing consultant. Please tell thefellow that Dr. Pineda did your procedure and that youwere instructed to have the fellow call me orthephysician covering for me to discuss the management of your condition. If you have an urgent problem, please goto the nearest emergency room and have the ER doctorcall my office during the day or the GI fellow afterhours and weekends to arrange admission or transfer toour facility. Please bring this report with you if you go to the emergency room. - Repeat colonoscopy in 5 years for surveillance day prep, fair pre. Attending Participation: I personally performed the entire procedure. Electronically signed by Jeronimo Pineda MD Jeronimo Pineda M.D. 04/05/2025 10:09:16 AM . Number of Addenda: 0 Note Initiated On: 04/05/2025 9:09 AM Jeronimo Pineda MD ENDOSCOPY PROCEDURES F inal Result * POCT glucose (04/05/2025 8:27 AM CDT) Glucose, POC 157 70 - 199 mg/dL Blood 04/05/2025 8:27 AM CDT 04/05/2025 8:27 AM CDT Jeronimo Pineda MD LAB POCT ORDERABLES - DEVICE Final Result [facility] Department of Laboratories [place], [place] [id number] * Screening Mammogram Bilateral W Gage (03/23/2025 3:02 PM CDT) Anatomical Region Laterality Modality Breast Bilateral Mammography Narrative 03/24/2025 11:40 AM CDT Mammogram Technique: Bilateral Digital Breast Tomosynthesis, Bilateral C-view 2D Screening mammogram. Views obtained: bilateral craniocaudal and bilateral mediolateral oblique. Computer Aided Detection was performed. Mammogram Findings: The present examination has been compared to prior imaging studies performed at [facility] on 03/19/2021 and 03/28/2021. There are scattered areas of fibroglandular density. There is no suspicious abnormality in either breast. Impression: There is no mammographic evidence of malignancy. Annual screening mammography is recommended. OVERALL FINAL ASSESSMENT: BI-RADS CATEGORY 1: Negative. Procedure Note Kaci Perez MD - 03/24/2025 Mammogram Technique: Bilateral Digital Breast Tomosynthesis, Bilateral C-view 2D Screening mammogram. Views obtained: bilateral craniocaudal and bilateral mediolateral oblique. Computer Aided Detection was performed. Mammogram Findings: The present examination has been compared to prior imaging studies performed at [facility] on 03/19/2021 and 03/28/2021. There are scattered areas of fibroglandular density. There is no suspicious abnormality in either breast. Impression: There is no mammographic evidence of malignancy. Annual screening mammography is recommended. OVERALL FINAL ASSESSMENT: BI-RADS CATEGORY 1: Negative. Wellington Medina MD IMG MAMMO PROCEDURES Final Re sult * (ABNORMAL) Glucose, random (Outreach) (02/16/2025 10:10 AM CDT) Glucose 238(H) 70 - 199 mg/dL Comment: Interpretive Data Fasting glucose >/= 126 mg/dl is diagnostic for diabetes. Fasting is defined as no caloric intake for at least 8 hours. Fasting glucose between 100 mg/dl to 125 mg/dl is diagnostic of prediabetes. In a patient with classic symptoms of hyperglycemia or hyperglycemic crisis, a random glucose >/= 200 mg/dl is diagnostic for diabetes. In the absence of unequivocal hyperglycemia, results should be confirmed by repeat testing. The classification and Diagnosis of Diabetes Diabetes Care 2021; 46: S19-S40. Current interpretive data was last revised 2022. Blood 02/16/2025 10:1 0 AM CDT 02/16/2025 12:22 PM CDT Wellington Medina MD LAB BLOOD ORDERABLES Final Re sult Performing Organization Address [facility] Co de Phone Number [facility] Department [place] [address] * eGFR (02/16/2025 10:10 AM CDT) eGFR 81 >=60 mL/min/1. 73 m2 Comment: Interpretive Data [...] interpretive data was last reviewed 2021. Blood 02/16/2025 10:1 0 AM CDT 02/16/2025 12:38 PM CDT Wellington Medina MD LAB BLOOD ORDERABLES Final Re sult [facility] Department [place] [address] * Differential, auto (02/16/2025 10:10 AM CDT) Pathologist [facility] Neutrophil abs 4.1 1.5 - 6.5 K/cumm Imm gran abs 0.0 0.0 - 0.1 K/cumm [facility] Lymphocyte abs 2.3 0.8 - 3.3 K/cumm [facility] Monocyte abs 0.5 0.2 - 0.8 K/cumm [facility] Eosinophil abs 0.1 0.0 - 0.5 K/cumm [facility] Basophil abs 0.1 0.0 - 0.1 K/cumm [facility] Neutrophil pct 57.2 % [facility] Comment: Interpretive Data Percent cell count reference ranges are not reported, since discordance with absolute values may lead to misinterpretation of CBC data. Current Interpretive Data was last revised on 2018. Imm gran pct 0.3 % [facility] Comment: Interpretive Data Percent cell count reference ranges are not reported, since discordance with absolute values may lead to misinterpretation of CBC data. Current Interpretive Data was last revised on 2018. Lymphocyte pct 32.6 % [facility] Comment: Interpretive Data Percent cell count reference ranges are not reported, since discordance with absolute values may lead to misinterpretation of CBC data. Current Interpretive Data was last revised on 2018. Monocyte pct 7.6 % [facility] Comment: Interpretive Data Percent cell count reference ranges are not reported, since discordance with absolute values may lead to misinterpretation of CBC data. Current Interpretive Data was last revised on 2018. Eosinophil pct 1.5 % [facility] Comment: Interpretive Data Percent cell count reference ranges are not reported, since discordance with absolute values may lead to misinterpretation of CBC data. Current Interpretive Data was last revised on 2018. Basophil pct 0.8 % [facility] Comment: Interpretive Data Percent cell count reference ranges are not reported, since discordance with absolute values may lead to misinterpretation of CBC data. Current Interpretive Data was last revised on 2018. Blood 02/16/2025 10:1 0 AM CDT 02/16/2025 12:22 PM CDT us Wellington Medina MD LAB BLOOD ORDERABLES Final Re sult [facility] Department [place] [address] * Comprehensive metabolic panel, without glucose (Outreach) (02/16/2025 10:10 AM CDT) [facility] Sodium 139 135 - 145 mmol/L Potassium, pl 4.2 3.3 - 4.9 mmol/L [facility] Chloride 101 97 - 110 mmol/L [facility] CO2 30 22 - 32 mmol/L [facility] Anion gap 8 2 - 15 mmol/L [facility] BUN 11 6 - 25 mg/dL [facility] Creatinine 0.82 0.60 - 1.10 mg/dL [facility] Calcium 9.5 8.5 - 10.3 mg/dL [facility] Protein, pl 7.8 6.5 - 8.5 g/dL [facility] Albumin 4.3 3.5 - 5.0 g/dL [facility] Bilirubin, total 0.3 0.1 - 1.2 mg/dL [facility] Alk phos 90 40 - 130 Units/L [facility] AST 23 10 - 45 Units/L [facility] ALT 17 7 - 45 Units/L [facility] Blood 02/16/2025 10:1 0 AM CDT 02/16/2025 12:22 PM CDT Wellington Medina MD LAB BLOOD ORDERABLES Final Re sult [facility] Department [place] [address] * (ABNORMAL) CBC with auto differential (02/16/2025 10:10 AM CDT) [facility] WBC 7.1 3.8 - 9.9 K/cumm Hgb 12.2 11.9 - 15.5 g/dL [facility] Hct 38.3 35.6 - 45.5 % [facility] Plt 234 150 - 400 K/cumm [facility] MPV 10.9 9.1 - 12.3 fL [facility] RBC 4.51 3.90 - 5.20 M/cumm [facility] MCV 84.9 81.3 - 96.4 fL [facility] MCH 27.1 27.1 - 33.3 pg [facility] MCHC 31.9(L) 32.3 - 35.7 g/dL [facility] RDW CV 15.2(H) 11.1 - 14.9 % [facility] RDW SD 47.1 35.7 - 48.1 fL [facility] NRBC abs 0.00 0.00 - 0.01 K/cumm [facility] Blood 02/16/2025 10:1 0 AM CDT 02/16/2025 12:22 PM CDT Wellington Medina MD LAB BLOOD ORDERABLES Final Re sult Performing Organization Address [facility] Co de Phone Number [facility] Department [place] [address] * Albumin Creatinine Ratio, Urine (02/16/2025 10:10 AM CDT) Albumin Ur <12.0 mg/L Comment: Interpretive Data No reference range established. Current interpretive data was last revised 2019. Creatinine Ur 107.3 mg/dL [facility] Comment: Interpretive Data No reference range established. Current interpretive data was last revised 2019. Albumin Creatinine Ratio, Ur <11 1 - 29 mg/g [facility] Urine 02/16/2025 10:1 0 AM CDT 02/16/2025 12:22 PM CDT Wellington Medina MD LAB URINE ORDERABLES Final Re sult Performing Organization Address City/[facility]/ZIP Co de Phone Number [facility] Department [place] [address] * (ABNORMAL) Hemoglobin A1c (02/16/2025 10:10 AM CDT) Hgb A1C 10.8(H) 4.0 - 5.6 % Estimated Average Glucose 263 mg/dL [facility] Comment: The ADA recommends reporting an estimated Average Glucose (eAG) with all Hemoglobin A1c results using the equation derived from a study of 507 normal and diabetic adults. Minority populations were underrepresented and children were not included. (Diabetes Care 2020; 43(S1): S66-S76). The eAG is not equivalent to a fasting glucose. Blood 02/16/2025 10:1 0 AM CDT 02/16/2025 12:22 PM CDT Wellington Medina MD LAB BLOOD ORDERABLES Final Re sult [facility] Department [place] [address] * Lipid panel (02/16/2025 10:10 AM CDT) Cholesterol 167 30 - 199 mg/dL Comment: Interpretive Data [...] Data was last revised on 2018. Triglycerides 133 <=149 mg/dL [facility] Comment: Interpretive Data Ages < or [...] Data was last revised on 2018. HDL 49 >=40 mg/dL [facility] Comment: Interpretive Data Ages < or = [...] was last revised on 2018. LDL, calculated 94 <=129 mg/dL [facility] Comment: Interpretive Data Ages < or = 19 years Acceptable: <110 mg/dL Borderline high: 110-129 mg/dL High: >or= 130 mg/dL Ages > or = 20 years Optimal: <100 mg/dL Near optimal: 100-129 mg/dL Borderline high: 130-159 mg/dL High: >160 mg/dL Calculated using the Ruddy LDL-C estimating equation. This equation was implemented on 2024. Prior to this date LDL-C was estimated using the Friedewald equation. Literature References: 1. Expert Panel on Integrated Guidelines for Cardiovascular Health and Risk Reduction in Children and Adolescents. Pediatrics 2011;128:S213 2. NCEP Expert Panel. Circulation 2004;110:[address] et al. JOSELINE Cardiol. 2020 March 30;5(5):540-548. doi: 10.1001/jamacardio.2020.0013 Current Interpretive Data was last revised on 2024. Non-HDL Cholesterol 118 mg/dL [facility] Comment: Interpretive Data Ages < or = [...] was last revised on 2018. Chol/HDL ratio 3 [facility] Blood 02/16/2025 10:1 0 AM CDT 02/16/2025 12:22 PM CDT Wellington Medina MD LAB BLOOD ORDERABLES Final Re sult [facility] Department [place] [address] from Last 3 Months Insurance [facility] [employer] H[facility]/PPO Address: [address] [address] [place] [address] [facility] Advance Directives For more information, please contact: [phone] * Full Code (Latest Code Status on File) Date Activated Date Inactivated Comments 04/05/2025 8:19 AM 04/05/2025 3:22 PM * Full Code Date Activated Date Inactivated Comments 02/17/2023 9:58 PM 02/20/2023 6:11 PM * Full Code Date Activated Date Inactivated Comments 08/31/2020 7:55 AM 08/31/2020 2:18 PM * Full Code Date Activated Date Inactivated Comments 07/06/2020 10:58 AM 07/06/2020 6:03 PM Care Teams Washer Repairman Relationship Specialty Start Date End Date Wellington Medina MD [address] [place] [address] [address] [place] [address] PCP - General 02/27/17
--- OUTSIDE RECORDS SUMMARY | 2025-05-05 16:33 | XMS_ITS | Encounter Summary ---
Author Organization [facility] Address [address] [place] [address] Care Team Providers Care New Account Interviewer Name Role Phone Wellington Medina MD Primary Care Provider [phone] Shena Acosta MA Unavailable [phone] Maryann Foy MA Unavailable [phone] Encounter Details Date Type Department Care Team (Late st Contact Info) Description 01/08/[address] 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 Gender Identity Not on file Sexual Orientation Not on file Occupation Industry Job Start Date Job End Date [employer] Not on file Not on file Not [...] on filedocumented in this encounter Care Teams New Account Interviewer Relationship Specialty Start Date End Date Wellington Medina MD [address] [place] [address] [address] [place] [address] PCP - General 02/27/17 Shena Acosta MA [address] [place] [address] ACO Care Planer Off Bearer 08/28/22 08/28/22 Maryann Foy MA [address] [place] [address] ACO Care Planer Off Bearer 02/23/23 02/23/23 documented as of this encounter
--- OUTSIDE RECORDS SUMMARY | 2025-05-05 16:33 | XMS_ITS | Clinical Summary ---
Author Organization [facility] HealthCare Care Team Providers Care Torque Tester Name Role Phone Wellington Medina MD Primary Care Provider [phone] Allergies No known active allergies Medications ergocalciferol [...] (09/26/2022): Added automatically from request for surgery [id number] Spinal stenosis of lumbar region with radiculopa thy 09/26/2022 Overview (09/26/2022): Added automatically from request for surgery [id number] Assessment & Plan (01/15/2023 5:24 PM RECORDS MANAGEMENT ANALYST): Lumbar spine surgery scheduled. Assessment & Plan (10/05/2022 7:59 PM RECORDS MANAGEMENT ANALYST): Spinal surgery onhold until patient's glycemic control improves. Primary insomnia 03/11/2021 Burrows's esophagus 08/14/2020 Overview (08/14/2020): Added automatically from request for surgery [id number] Assessment & Plan (07/28/2024 10:06 PM CDT): [...] 7.5%. Assessment & Plan (01/15/2023 5:23 PM RECORDS MANAGEMENT ANALYST): Much improved glycemic control with last Hb A1c of 7.1%. Continue current diet, Ozempic and metformin. Patient encouraged to update eye exam Assessment & Plan (10/05/2022 7:59 PM RECORDS MANAGEMENT ANALYST): Poorly controlled type 2 DM. Target Hb [...] lisinopril. Assessment & Plan (10/05/2022 7:58 PM RECORDS MANAGEMENT ANALYST): Target BP <140/90. Continue current diet and [...] paroxetine. Assessment & Plan (01/15/2023 5:23 PM RECORDS MANAGEMENT ANALYST): Mood stable on paroxetine. Assessment & Plan (08/29/2022 12:01 PM CDT): Mood stable on paroxetine. Migraine with aura 06/13/2014 Overview (03/06/2017): [facility] MIGRNE WO [facility] MGRN Panic disorder 04/15/2014 Overview [...] rosuvastatin. Assessment & Plan (01/15/2023 5:23 PM RECORDS MANAGEMENT ANALYST): Target LDL less than 100. Continue current diet and rosuvastatin. Assessment & Plan (10/05/2022 7:57 PM RECORDS MANAGEMENT ANALYST): Target LDL less than 100. Continue current [...] Type Department Care Team Description 04/19/2025 Telephone [facility] Gastroenterology [address] [facility] Medical Office Building [address], [address] [place] [address] Amelia Villagomez RN Test Results 04/18/2025 Telephone [facility] Medical Group at the [address] [place] [address] Wellington Medina MD Medical Question/Miscellaneous 04/13/2025 Orders Only [facility] Scanning, Provider 04/08/2025 Results Follow-Up [facility] Gastroenterology [address] [facility] Medical [address], [address] [place] [address] Jeronimo Pineda MD Surgical pathology 04/05/2025 9:11 AM CDT Anesthesia Event [facility] [address] [place] [address] [address] [place] [address] Tex Whitehead MD Barker, Anthony 04/05/2025 9:00 AM CDT - 04/05/2025 10:[address] [facility] [address] [place] [address] Jeronimo Pineda MD COLONOSCOPY 04/05/2025 8:14 AM CDT - 04/05/2025 11:18 AM CDT Hospital Encounter [facility] [address] [place] [address] Jeronimo Pineda MD Hx of colonic polyps; Gastroesophageal reflux disease, unspecified whether esophagitis present; History of Burrows's esophagus Discharge Disposition: Discharge to home or self care 04/03/2025 Telephone [facility] Gastroenterology [address] [facility] Medical Office [address], [address] [place] [address] Amelia Villagomez RN Pt returned call after msg left by OA schedulers 03/31/[address] [facility] Specialty Services [address] [place] [phone] Pearl Hudson RN GI Preprocedure 03/29/[address] [facility] Specialty Services [address] [place] [phone] Pearl Hudson RN GI Preprocedure 03/23/2025 2:50 PM CDT - 03/23/2025 11:59 PM CDT Hospital Encounter [facility] Advanced Medicine Breast [facility] [address] [place] [address] Screening mammogram, encounter for Discharge Disposition: Discharge to home or self care 03/16/2025 Telephone [facility] Gastroenterology [address] [place] [address] Advanced Medicine 12th [place] [address] [place] [phone] Sondra Starr gi pre procedure assessment 03/15/[address] [facility] Specialty Services [address] [place] [phone] Lupe Phan, CABRERA 03/15/2025 Telephone [facility] Gastroenterology [address] [place] [address] Advanced Medicine 12th [place] [address] [place] [phone] Nati Hernandez LPN 03/14/2025 Orders Only [facility] Medical Group at the [address] [phone] Wellington Medina MD Gastroesophageal reflux disease, unspecified whether esophagitis present (Primary Dx) 03/14/2025 Telephone [facility] Medical Group at the [address] [phone] Wellington Medina MD Medical Question/Miscellaneous 03/14/2025 Telephone [facility] Gastroenterology [address] [place] [address] 12th [place] [address] [place] [address] Nati Hernandez LPN 03/13/2025 Orders Only [facility] Medical Group at the [address] [phone] Wellington Medina MD 03/13/2025 Telephone [facility] Medical Group at the [address] [address] Wellington Medina MD Symptom Based Call 02/24/2025 Telephone [facility] Medical Group at the [address] [phone] Wellington Medina MD 02/22/[address] [facility] Specialty Services [address] [place] [address] Lupe Phan RN 02/18/2025 Results Follow-Up [facility] Medical Group at the [address] [phone] Wellington Medina MD Albumin Creatinine Ratio, Urine, CBC with auto differential, Hemoglobin A1c, Additional followed-up results: 5 02/16/2025 11:12 AM CDT - 02/16/2025 11:59 PM CDT Hospital Encounter [facility] [address] [place] [address] Discharge Disposition: Discharge to home or self care 02/16/2025 9:15 AM CDT Office Visit [facility] Medical Group at the [address] [place] [address] [place] [phone] Wellington Medina MD Hyperlipidemia associated with type 2 diabetes mellitus (HCC) (Primary Dx); Type 2 diabetes mellitus with hyperglycemia, without long-term current use of insulin (HCC); Benign essential hypertension; History of colonic polyps; Need for vaccination; Screening mammogram, encounter for; Moderate episode of recurrent major depressive disorder (HCC) 02/16/2025 Telephone [facility] Medical Group at the [address] [place] [address] Wellington Medina MD Authorization/Certific ation 02/16/2025 Orders Only [facility] at the [address] [phone] Wellington Medina MD Type 2 diabetes mellitus with hyperglycemia, without long-term current use of insulin (HCC); Benign essential hypertension; Hyperlipidemia associated with type 2 diabetes mellitus (HCC) 02/08/2025 Telephone [facility] Medical Group at the [address] [place] [phone] Wellington Medina MD from Last 3 Months [...] on file Legal Sex Female 11:31 PM RECORDS MANAGEMENT ANALYST Gender Identity Not on file Sexual Orientation Not on file Occupation Industry 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 on file Not on [...] Visit/Exam 18-64 01/15/2024, 10/28/2021, 02/29/2020 Covid-19 Vaccine ( - 2023-2 5 season) 2024 10/16/2021, 01/28/2021, 01/07/2021 Depression [...] history exists Medical Devices Implanted Type Area Grinder Set Up Operator Universal Device Identifier Shelf Expiration Date Model / Serial / Lot Allosource Canpac Allograft Frozen Nonpurge Graft 10cc Bone Cancellous [id number] - [id number] Implanted:Qty: 1 on 02/17/2023 by Gustabo Lynne MD at [facility] N/A: Spine Lumbar Allosource 10/19/2027 [id number] / / [id number] Nuv[employer] Reline 5.5mm Lock Open Tulip Spine Screw Bone Nonsterile [id number] - [id number] Implanted:Qty: 4 on 02/17/2023 by Gustabo Lynne MD at [facility] N/A: Spine Lumbar [employer] [id number] / / [employer] Inc Reline-O 7.5mm 45mm Polyaxial Spine 2s Screw Bone Nonsterile [id number] - [id number] Implanted:Qty: 1 on 02/17/2023 by Gustabo Lynne MD at [facility] N/A: Spine Lumbar [employer] [id number] / / [employer]. Reline-O 5.5mm 35mm Lordotic Bruno Spinal Titanium Nonsterile [id number] - [id number] Implanted:Qty: 1 on 02/17/2023 by Gustabo Lynne MD at [facility] N/A: Spine Lumbar [employer]. [id number] / / [employer]. Reline-O 5.5mm 40mm Lordotic Bruno Spinal Titanium Nonsterile [id number] - [id number] Implanted:Qty: 1 on 02/17/2023 by Gustabo Lynne MD at [facility] N/A: Spine Lumbar [employer]. [id number] / / [employer] Reline-O 8.5mm 50mm Polyaxial Spine 2s Screw Bone Nonsterile [id number] - [id number] Implanted:Qty: 1 on 02/17/2023 by Gustabo Lynne MD at [facility] N/A: Spine Lumbar [employer] [id number] / / [employer] Screw Bone Spinal Reline-O 7.0x50mm 2s Polyaxial [id number] - [id number] Implanted:Qty: 2 on 02/17/2023 by Gustabo Lynne MD at [facility] N/A: Spine Lumbar [employer] [id number] / / Procedures Procedure Name Priority Date/Time Associated Diagnosis Comments SCAN - LABS 04/13/2025 POCT GLUCOSE DEVICE Routine 04/05/2025 10:40 AM CDT SURGICAL PATHOLOGY Routine 04/05/2025 9:27 AM CDT Hx of colonic polyps Gastroesophageal reflux disease, unspecified whether esophagitis present History of Burrows's esophagus IN AN PROCEDURE PLACEHOLDER Routine 05/2025 9:25 AM CDT IN AN ELECTIVE ENDOTRACHEAL AIRWAY Routine 04/05/2025 9:25 [...] LAB POCT ORDERABLES - DEVICE Final [facility] Department [place] [address] * Surgical pathology (04/05/2025 9:27 AM CDT) Tissue (Gastric/Stomach biopsy) 04/05/2025 9:27 AM CDT Tissue specimen (specimen) (Gastric/Stomach biopsy) 04/05/2025 9:29 AM CDT Tissue specimen (specimen) (Polyp(s), colon/colorectal, esophageal, gastric) 04/05/2025 9:30 AM CDT Tissue specimen (specimen) (Esophageal biopsy) 04/05/2025 9:33 AM CDT Narrative PATHOLOGY [facility] - 04/07/2025 2:26 PM CDT EPIC results best viewed via link to PDF [facility] [place] [address] Note to Patients: This report may contain [...] Gender: F : 1965 (Age: 60) Address: [address] [place] [address] Hospital #: [id number] Taken:04/05/2025 Received:04/05/2025 Reported: 04/07/2025 Patient Type: [facility] Service: Gastro Location: Physician(s): Lona Arroyo [...] - Negative for intestinal metaplasia or dysplasia gp04/06/2025 11:40 By this signature, I attest that [...] D1. Jar 0. sxst/04/05/2025 12:35 PA(s): Poly Stackle By this signature, I attest that the above diagnosis is based upon my personal examination of the slides(and/or other material). Addenda/Procedures The performance characteristics of some immunohistochemical stains, fluorescence in-situ hybridization tests and immunophenotyping by flow cytometry cited in this report (if any) were determined by the Surgical Pathology and Flow Cytometry Departments at [facility] as part of an ongoing quality control clerk program and in compliance with federally mandated [...] Surgical Pathology and Flow Cytometry Departments of [facility]. It has not been cleared or approved by the U. S. Food and Drug Administration. IMAGES AND SCANNED DOCUMENTS, IF INCLUDED, ONLY VIEWABLE IN PDF VERSION OF REPORT Jeronimo Pineda MD LAB PATHOLOGY ORDERABL ES Final Result PATHOLOGY [facility] 3rd Floor [place], [place] [phone] * IN AN ELECTIVE ENDOTRACHEAL AIRWAY, IN AN PROCEDURE PLACEHOLDER (04/05/2025 9:25 AM CDT) [...] Female Attending MD: Jeronimo Pineda M.D. Room: [facility] ENDOSCOPY ROOM 9 Note Status: Finalized Procedure: [...] Burrows's disease, classified as Burrows's stage C0-M1per [place] criteria present in the distal esophagus. The [...] disease, classified as Burrows's stage C0-M1 per [place] criteria.Biopsied. - Medium-sized hiatal hernia. - Gastroesophageal [...] Female Attending MD: Jeronimo Pineda M.D. Room: [facility] ENDOSCOPY ROOM 9 Note Status: Finalized Procedure: [...] the bowel preparation was evaluatedusing the BBPS ([employer] [place] Bowel Preparation Scale) withscores of: Right Colon [...] scope was passed under directvision. The CF [id number] endoscope was introduced through the anus [...] following this procedure please call Naomi Hamilton [phone]. After hours and evenings please call [phone] speak to the GI fellow secondary spanish teacher. Please tell thefellow that Dr. Pineda did [...] POCT ORDERABLES - DEVICE Final Result [facility] Department [place] [address] * Screening Mammogram Bilateral W Gage (03/23/2025 3:02 PM CDT) Anatomical Region Laterality Modality Breast Bilateral Mammography Narrative 03/24/2025 11:40 AM CDT Mammogram Technique: Bilateral Digital Breast Tomosynthesis, Bilateral C-view 2D Screening mammogram. Views obtained: bilateral craniocaudal and bilateral mediolateral oblique. Computer Aided Detection was performed. Mammogram Findings: The present examination has been compared to prior imaging studies performed at [facility] on 03/19/2021 and 03/28/2021. There are scattered [...] compared to prior imaging studies performed at [facility] on 03/19/2021 and 03/28/2021. There are scattered [...] ORDERABLES Final Re sult [facility] [place] [address] * eGFR (02/16/2025 10:10 AM CDT) eGFR [...] 0 AM CDT 02/16/2025 12:38 PM CDT us Wellington Medina MD LAB BLOOD ORDERABLES Final Re sult [facility] [place] [address] * Differential, auto (02/16/2025 10:10 AM CDT) Pathologist [facility] Neutrophil abs 4.1 1.5 - 6.5 K/cumm Imm gran abs 0.0 0.0 - 0.1 K/cumm [facility] Lymphocyte abs 2.3 0.8 - 3.3 K/cumm [facility] Monocyte abs 0.5 0.2 - 0.8 K/cumm [facility] Eosinophil abs 0.1 0.0 - 0.5 K/cumm [facility] Basophil abs 0.1 0.0 - 0.1 K/cumm [facility] Neutrophil pct 57.2 % [facility] Comment: Interpretive Data Percent cell count reference ranges are not reported, since discordance with absolute values may lead to misinterpretation of CBC data. Current Interpretive Data was last revised on 2018. Imm gran pct 0.3 % [facility] Comment: Interpretive Data Percent cell count reference ranges are not reported, since discordance with absolute values may lead to misinterpretation of CBC data. Current Interpretive Data was last revised on 2018. Lymphocyte pct 32.6 % [facility] Comment: Interpretive Data Percent cell count reference ranges are not reported, since discordance with absolute values may lead to misinterpretation of CBC data. Current Interpretive Data was last revised on 2018. Monocyte pct 7.6 % [facility] Comment: Interpretive Data Percent cell count reference ranges are not reported, since discordance with absolute values may lead to misinterpretation of CBC data. Current Interpretive Data was last revised on 2018. Eosinophil pct 1.5 % [facility] Comment: Interpretive Data Percent cell count reference ranges are not reported, since discordance with absolute values may lead to misinterpretation of CBC data. Current Interpretive Data was last revised on 2018. Basophil pct 0.8 % [facility] Comment: Interpretive Data Percent cell count reference ranges are not reported, since discordance with absolute values may lead to misinterpretation of CBC data. Current Interpretive Data was last revised on 2018. Blood 02/16/2025 10:1 0 AM CDT 02/16/2025 12:22 PM CDT us Wellington Medina MD LAB BLOOD ORDERABLES Final Re sult [facility] [place] [address] * Comprehensive metabolic panel, without glucose (Outreach) (02/16/2025 10:10 AM CDT) Sodium 139 135 - 145 mmol/L Potassium, pl 4.2 3.3 - 4.9 mmol/L [facility] Chloride 101 97 - 110 mmol/L [facility] CO2 30 22 - 32 mmol/L [facility] Anion gap 8 2 - 15 mmol/L [facility] BUN 11 6 - 25 mg/dL [facility] Creatinine 0.82 0.60 - 1.10 mg/dL [facility] Calcium 9.5 8.5 - 10.3 mg/dL [facility] Protein, pl 7.8 6.5 - 8.5 g/dL [facility] Albumin 4.3 3.5 - 5.0 g/dL [facility] Bilirubin, total 0.3 0.1 - 1.2 mg/dL [facility] Alk phos 90 40 - 130 Units/L [facility] AST 23 10 - 45 Units/L [facility] ALT 17 7 - 45 Units/L [facility] Blood 02/16/2025 10:1 0 AM CDT 02/16/2025 12:22 PM CDT Wellington Medina MD LAB BLOOD ORDERABLES Final Re sult [facility] Department [place] [address] * (ABNORMAL) CBC with auto differential (02/16/2025 10:10 AM CDT) WBC 7.1 3.8 - 9.9 K/cumm Hgb 12.2 11.9 - 15.5 g/dL [facility] Hct 38.3 35.6 - 45.5 % [facility] Plt 234 150 - 400 K/cumm [facility] MPV 10.9 9.1 - 12.3 fL [facility] RBC 4.51 3.90 - 5.20 M/cumm [facility] MCV 84.9 81.3 - 96.4 fL [facility] MCH 27.1 27.1 - 33.3 pg [facility] MCHC 31.9(L) 32.3 - 35.7 g/dL [facility] RDW CV 15.2(H) 11.1 - 14.9 % [facility] RDW SD 47.1 35.7 - 48.1 fL [facility] NRBC abs 0.00 0.00 - 0.01 K/cumm [facility] Blood 02/16/2025 10:1 0 AM CDT 02/16/2025 12:22 PM CDT Result [facility] Wellington Medina MD LAB BLOOD ORDERABLES Final Re sult Performing Organization Address [facility] Co de Phone Number [facility] Department [place] [address] * Albumin Creatinine Ratio, Urine (02/16/2025 10:10 AM CDT) Albumin Ur <12.0 mg/L Comment: Interpretive Data No reference range established. Current interpretive data was last revised 2019. Creatinine Ur 107.3 mg/dL [facility] Comment: Interpretive Data No reference range established. Current interpretive data was last revised 2019. Albumin Creatinine Ratio, Ur <11 1 - 29 mg/g [facility] Urine 02/16/2025 10:1 0 AM CDT 02/16/2025 12:22 PM CDT Result [facility] Wellington Medina MD LAB URINE ORDERABLES Final Re sult Performing Organization Address [facility] de Phone Number [facility] Department [place] [address] * (ABNORMAL) Hemoglobin A1c (02/16/2025 10:10 AM CDT) Hgb A1C 10.8(H) 4.0 - 5.6 % Estimated Average Glucose 263 mg/dL [facility] Comment: The ADA recommends reporting an estimated [...] LAB BLOOD ORDERABLES Final Re sult [facility] [place] [address] * Lipid panel (02/16/2025 10:10 AM CDT) [...] revised on 2018. Triglycerides 133 <=149 mg/dL [facility] Comment: Interpretive Data Ages < or [...] revised on 2018. HDL 49 >=40 mg/dL [facility] Comment: Interpretive Data Ages < or [...] on 2018. LDL, calculated 94 <=129 mg/dL [facility] Comment: Interpretive Data Ages < or = [...] [address]. [address] et al. JOSELINE Cardiol. 2019March 30;5(5):540-548. doi: 10.1001/jamacardio.2020.0013 Current Interpretive Data was last revised on 2024. Non-HDL Cholesterol 118 mg/dL [facility] Comment: Interpretive Data Ages < or = [...] last revised on 2018. Chol/HDL ratio 3 [facility] Blood 02/16/2025 10:1 0 AM CDT 02/16/2025 12:22 PM CDT us Wellington Medina MD LAB BLOOD ORDERABLES Final Re sult [facility] [place] [address] from Last 3 Months Insurance [facility] [employer] [facility] [place] [address] Advance Directives For more information, please contact: [phone] * Full Code (Latest Code Status on File) Date Activated Date Inactivated Comments 04/05/2025 8:19 AM 04/05/2025 3:22 PM * Full Code Date Activated Date Inactivated Comments 02/17/2023 9:58 PM 02/20/2023 6:11 PM * Full Code Date Activated Date Inactivated Comments 08/31/2020 7:55 AM 08/31/2020 2:18 PM * Full Code Date Activated Date Inactivated Comments 07/06/2020 10:58 AM 07/06/2020 6:03 PM Care Teams Torque Tester Relationship Specialty Start Date End Date Wellington Medina MD [address] [place] [address] [address] Fishman [address] [address] PCP - General 02/27/17
== END 2025-05-05 16:26 | disposition home or self-care (01) ==
DX: D3A.8 Other benign neuroendocrine tumors (principal)
CPT/HCPCS: 36415; 86364